=== PATIENT | female | born 1945 | race Caucasian/White ===

== ENCOUNTER → 2019-11-28 13:15 | Outpatient (BNVA) | payer MEDICARE, OTHER, SELFPAY | PROVIDERS: Family Provider Internal Medicine; PCP Internal Medicine; Visit Provider Internal Medicine | DX: E11.9 Type 2 diabetes mellitus without complications (principal); K75.81 Nonalcoholic steatohepatitis (NASH); R41.3 Other amnesia | CPT/HCPCS: 80053; 80061; 82607; 82746; 83036; 83550; 84443; 85025 ==

== ENCOUNTER 2022-05-06 16:46 | Emergency (ER) | payer MEDICARE, OTHER, SELFPAY ==
[2022-05-06 16:49] VITALS: BP 114/71; PULSE 92; RESP 16; TEMP 37; O2SAT 94; BMI 29.8
--- NOTE | 2022-05-06 17:28 | CTR_ITS ---
PROCEDURE INFORMATION: Exam: CT Head Without Contrast Exam date and time: 05/06/2022 6:07 PM Age: 77 years old Clinical indication: Stroke-like symptoms; Altered mental status/memory loss and ataxia; Generalized weakness; Additional info: Stroke like symptoms TECHNIQUE: Imaging protocol: Computed tomography of the head without contrast. Radiation optimization: All CT scans at this facility use at least one of these dose optimization techniques: automated exposure control; mA and/or kV adjustment per patient size (includes targeted exams where dose is matched to clinical indication); or iterative reconstruction. Other technique: STROKE PROTOCOL was implemented. REPORTING DATA: Count of CT and Cardiac NM exams in prior 12 months: This patient has received 0 known CTs and 0 known cardiac nuclear medicine studies in the 12 months prior to the current study. COMPARISON: No relevant prior studies available. RADIATION DOSE METRICS: Total DLP (mGy-cm): 1140.48 FINDINGS: Brain: There is moderate cortical atrophy. Low-density changes in the white matter are consistent with nonspecific small vessel chronic ischemic change. There is no intracranial mass, hemorrhage or edema. Cerebral ventricles: No ventriculomegaly. Paranasal sinuses: Visualized sinuses are unremarkable. No fluid levels. Mastoid air cells: Visualized mastoid air cells are well aerated. Bones/joints: Unremarkable. No acute fracture. Soft tissues: Unremarkable. CT/CT head thrombolytic [id number] IMPRESSION: No acute finding. ASSESSMENT: ASPECTS ([place] Stroke Program Early CT Score) is 10.
--- NOTE | 2022-05-06 18:00 | ED_ITS ---
HPI - Weakness General: Chief complaint: Weakness Stated complaint: nausea vomiting Time Seen by Provider: 05/06/22 18:00 History of Present Illness: 77-year-old female comes in today with what was described as a probable seizure episode. Patient was at the hair salon when she had an event where she threw up and wet herself. The episode was short and patient was confused after it. Patient has no deficits at this time. Patient's family states that she seems to be acting herself except may be a little, druggie. Patient responds appropriate to questions. Patient moves all e xtremities well. Patient does have some right-sided deficits from a prior CVA. Associated symptoms: Reports vomiting; Denies chest pain, fever(s) or nausea Review of Systems Const: Denies: fever(s) ENMT: Denies: throat pain Card: Denies: chest pain Resp: Denies: dyspnea GI: Reports: vomiting; Denies: nausea : Reports: other (Incontinence x1) Skin/Breast: Denies: rash [facility] ED PFSH: Medical History (Updated 05/06/22 @ 21:14 by NITESH Garg) Seizure disorder Family History Mother Diabetes Father Heart disease Social History Smoking and tobacco status: never smoked Alcohol intake: never Adopted: No Marital status: Number of children: 2 service: No Physical Exam Const: COMMON NORMALS: alert HENMT: COMMON NORMALS: normocephalic and atraumatic HEAD & SCALP: normocephalic and atraumatic Eye: GENERAL EYE: appearance normal, both eyes and all related structures Neck/C-Spine: COMMON NORMALS: full ROM CERVICAL SPINE: No Cervical spine tenderness Chest: COMMONS NORMALS: normal palpation of entire chest wall Resp: COMMON NORMALS: normal respiratory effort and clear to auscultation bilaterally AUSCULTATION: clear to auscultation bilaterally Cardio: COMMON NORMALS: regular rate and regular rhythm RATE: regular rate RHYTHM: regular rhythm GI: AUSCULTATION: Yes normoactive bowel sounds Back/Pelvis: THORACIC SPINE/UPPER BACK: No thoracic spinal tenderness LUMBAR SPINE/LOWER BACK: No lumbar spinal tenderness Extremity: NARRATIVE EXTREMITY EXAM: Mild weakness in the right arm and leg. Patient does report that she has 1 bad leg. Neuro: SENSORIUM/ORIENTATION: Yes alert Skin: COMMON NORMALS: turgor normal GENERAL SKIN EXAM: turgor normal Course ED course: 1954, reviewed patient with Dr. Lawler regarding abnormality with urine and white blood cell count. Lactate was added to lab. Reviewed plan at this time to give IV fluids, antibiotic, and reassess for mobility. The patient continues to be really weak with ambulation she may need to have admission to the hospital. 2100, patient was able to ambulate in the hallway with minimal assist. This is much improved over prior ambulation. Patient has been more alert throughout hospital stay. Reviewed with family signs of infection in the urinary tract which we believe lowered her threshold for seizure causing patient to have a seizure. Family reported understanding and agreed with oral antibiotic at home and monitoring for worsening symptoms return as needed. Vital Signs: Vital signs: Vital Signs Temperature 98.6 F 05/06/22 16:49 Pulse Rate 92 05/06/22 16:49 Respiratory Rate 16 05/06/22 16:49 Blood Pressure 114/71 05/06/22 16:49 Pulse Oximetry 94 05/06/22 16:49 Oxygen Delivery Me thod 05/06/22 16:49 MDM - Weakness Medical Decision Making 77-year-old female was brought in today for concerns of an syncopal episode that occurred at a hair salon. At that time patient lost bladder control and threw up. Patient since then has recovered but continues to be slightly withdrawn and somnolent. Patient responds appropriate to questions and is alert and knows where she is at. Patient has a history of CVA, seizure episodes, and dementia. Vital signs are normal. Heart rates regular. Lungs are clear to auscultation. No edema is noted in the extremities. Palpation of the chest wall, cervical, thoracic, and lumbar spine elicits no pain or discomfort. No signs of head injury is noted. Differential diagnosis includes but not limited to CVA, TIA, seizure episode, ACS, sepsis. Urinalysis had a large amount of white blood cells. Blood cell count was leukopenic at 2.2. Lactate was 2.2. Creatinine was 1.2. Anion gap was 20. Patient was given 1 L of IV fluids and 500 mg of Levaquin. Patient was reassessed after IV fluids and was able to ambulate more and was more alert throughout hospital stay visit. Reviewed exam with family with recommendations for treatment of urinary tract infection. It is believed that urinary tract infection caused changes in mental status and reduced threshold for seizure. We will have case management assist patient and family with follow-up with neurology due to patient's seizures. Lab Data 05/06/22 17:03 05/06/22 17:[address] 05/06/22 17:28 IMPRESSION: No acute finding. ASSESSMENT: ASPECTS ([place] Stroke Program Early CT Score) is 10. Laboratory Results WBC 2.2 10^3/uL (4.0-10.0) L 05/06/22 17:03 RBC 4.48 10^6/uL (4.1-5.3) 05/06/22 17: Hgb 13.5 g/dL (11.5-15.3) 05/06/22 17:03 Hct 41.4 % (37.0-47.0) 05/06/22 17:03 MCV 92.4 fl (81-99) 05/06/22 17:03 MCH 30.1 pg (28.0-34.0) 05/06/22 17:03 MCHC 32.6 g/dL (30.0-36.0) 05/06/22 17:03 RDW 13.1 % (12.1-15.1) 05/06/22 17:03 Plt Count 241 10^3/cmm (130-400) 05/06/22 17:03 MPV 10.0 fL (7.4-10.4) 05/06/22 17:03 Neut % (Auto) 92.6 % 05/06/22 17:03 Lymph % (Auto) 5.1 % 05/06/22 17:03 [place] % (Auto) 0.5 % 05/06/22 17: Eos % (Auto) 0.0 % 05/06/22 17: Baso % (Auto) 0.9 % 05/06/22 17:03 Neut # (Auto) 2.00 10^3/uL (1.8-7.7) 05/06/22 17:03 Lymph # (Auto) 0.1 10^3/uL (0.8-4.8) L 05/06/22 17:03 [place] # (Auto) 0.0 10^3/uL (0.2-0.9) L 05/06/22 17:03 Eos # (Auto) 0.0 10^3/uL (0.0-0.8) 05/06/22 17:03 Baso # (Auto) 0.0 10^3/uL (0.0-0.1) 05/06/22 17:03 Nucleated RBC % (auto) 0 % 05/06/22 17:03 Nucleated RBCs # 0.0 /100WBC 05/06/22 17:03 Sodium 137 mmol/L (136-145) 05/06/22 17:03 Potassium 4.1 mmol/L (3.5-5.1) 05/06/22 17:03 Chloride 101 mmol/L (98-107) 05/06/22 17:03 Carbon Dioxide 18 mmol/L (22-29) L 05/06/22 17:03 Anion Gap 22.1 (5-19) H 05/06/22 17:03 BUN 25 mg/dL (8-23) H 05/06/22 17:03 Creatinine 1.2 mg/dL (0.5-0.9) H 05/06/22 17:03 GFR Calculation Not Reportable 05/06/22 17:03 Glucose 112 mg/dL (65-115) 05/06/22 17:03 Calculated Osmolality 289 mOsm/kg (285-295) 05/06/22 17:03 Lactic Acid 2.1 mmol/L (0.5-2.2) 05/06/22 20:30 Calcium 10.2 mg/dL (8.5-10.5) 05/06/22 17:03 Total Bilirubin 0.7 mg/dL (0.15-1.2) 05/06/22 17:03 AST 33 U/L (0-32) H 05/06/22 17:03 ALT 16 U/L (0-33) 05/06/22 17:03 Alkaline Phosphatase 91 U/L (35-105) 05/06/22 17:03 Troponin T Baseline 21 ng/L (0-10) H 05/06/22 17:03 Troponin T 120 Minute 24.94 ng/L (0-10) H 05/06/22 19:43 Delta Troponin T 3.94 ABS# (0-10) 05/06/22 19:43 Total Protein 7.0 g/dL (6.6-8.7) 05/06/22 17:03 Albumin 3.9 g/dL (3.5-5.2) 05/06/22 17:03 Globulin 3.1 g/dL (1.3-4.6) 05/06/22 17:03 Urine Color Yellow (Yellow) 05/06/22 18:48 Urine Appearance Cloudy (CLEAR) A 05/06/22 18:48 Urine pH 9 (5-7) H 05/06/22 18:48 Ur Specific [place] 1.015 (1.005-1.030) 05/06/22 18:48 Urine Protein Neg (Negative) 05/06/22 18:48 Urine Glucose (UA) Norm (Normal) 05/06/22 18:48 Urine Ketones 1+ (Negative) H 05/06/22 18:48 Urine Blood 3+ (Negative) H 05/06/22 18:48 Urine Nitrate Positive (Negative) H 05/06/22 18:48 Urine Bilirubin Neg (Negative) 05/06/22 18:48 Prot Sulfosalicylic Acd Negative (Negative) 05/06/22 18:48 Urine Urobilinogen Norm mg/dL (Negative) 05/06/22 18:48 Ur Leukocyte Esterase 2+ (Negative) H 05/06/22 18:48 Urine RBC >100 /hpf (0-2) H 05/06/22 18:48 Urine WBC >100 /hpf (0-5) H 05/06/22 18:48 Ur Squamous Epith Cells 0-4 /hpf (0-5) H 05/06/22 18:48 Triple Phos Crystals 5-10 /hpf H 05/06/22 18:48 Amorphous Sediment 3+ /hpf 05/06/22 18:48 Urine Bacteria 3+ /hpf (NONE) H 05/06/22 18:48 Discharge Plan Discharge Patient Disposition: Home Clinical Impression: Acute UTI, Seizure, Dehydration Condition: Stable Prescriptions: New levofloxacin 500 mg tablet 500 mg PO DAILY 5 Days Qty: 5 0RF No Action Centrum Silver Women 8 mg iron-400 mcg-300 mcg tablet 1 tab PO DAILY nabumetone 750 mg tablet 750 mg PO BID Qty: 60 1RF primidone 50 mg tablet See Rx Instructions .ROUTE .COMPLEX Qty: 180 2RF Dose Instruction: TAKE ONE TABLET BY MOUTH ONCE DAILY IN THE MORNING AND TWO TABLETS BY MOUTH IN THE EVENING. MAY TAKE AN EXTRA TABLET IF NEEDED Rx Instructions: TAKE ONE TABLET BY MOUTH ONCE DAILY IN THE MORNING AND TWO TABLETS BY MOUTH I N THE EVENING. MAY TAKE AN EXTRA TABLET IF NEEDED topiramate [Topamax] 200 mg tablet 200 mg PO BID Qty: 60 3RF Discharge Orders: Discharge ED (Routine); Ordered 05/06/22 Ordered By: Michael Palacios Referrals: Bola Cervantes MD [Primary Care Provider] - Discharge Diet: Usual diet Discharge Activity: Increase activity as tolerated Patient Instructions: Urinary Tract Infection in Women (ED) Activity Restrictions/Additional Instructions: Continue antibiotic as directed encourage plenty of fluids. Continue with routine medications as directed. Follow-up with primary care in 3 to 5 days. Return to ER for worsening symptoms such as fever greater than 100.4, inability to hold fluids down, worsening changes in mental status, or increasing seizures. Coding Level of Care Code ED Lip And Gate Builder for [place] NIH stroke score NIHSS Level Of Consciousness - 1a: 0 Level Of Consciousness Questions - 1b: One Correct Level Of Consciousness Commands - 1c: Both Correct Best Gaze - 2: Normal Visual Pate - 3: No Visual Loss Facial Palsy - 4: Normal Motor Arm Right - 5: Effort Against [place] Motor Arm Left - 5: No Drift Motor Leg Right - 6: No Drift Motor Leg Left - 6: No Drift Limb Ataxia - 7: Absent Sensory - 8: Normal Best Language - 9: Mild/Moderate Aphasia Dysarthia - 10: Normal Extinction And Inattention - 11: 0 Score Total Score: 4
[2022-05-06 18:22] LABS: Basophils % 0.9 %; Hematocrit 41.4 % (37.0-47.0); Hemoglobin 13.5 g/dL (11.5-15.3); Lymphocytes # 0.1 10^3/uL (0.8-4.8); Lymphocytes % 5.1 %; Mean Corpuscular HGB Conc 32.6 g/dL (30.0-36.0); Mean Corpuscular Hemoglobin 30.1 pg (28.0-34.0); Mean Corpuscular Volume 92.4 fl (81-99); Monocytes % 0.5 %; Neutrophils % 92.6 %; Nucleated Red Blood Cells % 0 %; Platelet Count 241 10^3/cmm (130-400); Red Blood Count 4.48 10^6/uL (4.1-5.3); Red Cell Distribution Width 13.1 % (12.1-15.1); White Blood Count 2.2 10^3/uL (4.0-10.0)
[2022-05-06 18:48] LABS: Albumin Level 3.9 g/dL (3.5-5.2); Chloride 101 mmol/L (98-107); Total Bilirubin 0.7 mg/dL (0.15-1.2)
[2022-05-06 18:51] LABS: Slide Review Slide Review Perform
[2022-05-06 19:09] LABS: Alanine Aminotransferase 16 U/L (0-33); Alkaline Phosphatase 91 U/L (35-105); Anion Gap 22.1 (5-19); Aspartate Amino Transferase 33 U/L (0-32); Blood Urea Nitrogen 25 mg/dL (8-23); Calcium 10.2 mg/dL (8.5-10.5); Carbon Dioxide 18 mmol/L (22-29); Globulin 3.1 g/dL (1.3-4.6); Glucose 112 mg/dL (65-115); Osmolality Calculated 289 mOsm/kg (285-295); Potassium 4.1 mmol/L (3.5-5.1); Sodium 137 mmol/L (136-145)
[2022-05-06 19:13] LABS: Troponin(5th) Baseline 21 ng/L (0-10)
[2022-05-06 19:29] LABS: Specific Gravity, Urine 1.015 (1.005-1.030); Urine Appearance Cloudy (CLEAR); Urine Color Yellow (Yellow); pH Urine 9 (5-7)
[2022-05-06 19:33] LABS: Add Urine Culture? Yes; Add Urine Microscopic? YES; Amorphous Sediment Urine 3+ /hpf; Bacteria Urine 3+ /hpf; Bilirubin Urine Neg (Negative); Blood Urine 3+ (Negative); Glucose Urine UA Norm (Normal); Ketones Urine 1+ (Negative); Leukocyte Esterase Urine 2+ (Negative); Nitrate Urine Positive (Negative); Protein Urine Neg (Negative); RBC Urine >100 /hpf (0-2); Squamous Epithelial Cell Urine 0-4 /hpf (0-5); Sulfosalicylic Acid Urine Negative (Negative); Urobilinogen Urine Norm (Negative); WBC Urine >100 /hpf (0-5)
[2022-05-06] MEDS: levoFLOXacin 500 mg Tablet PO (19:52)
[2022-05-06] MEDS: sodium chloride 0.9% 1,000 ML 999 ML IV (19:54)
[2022-05-06 20:07] LABS: Troponin 5 2HR 24.94 ng/L (0-10)
[2022-05-06 20:09] LABS: Troponin 5 2HR Delta 3.94 ABS# (0-10)
[2022-05-06 21:04] LABS: Lactic Sepsis W/Reflex 2.1 mmol/L (0.5-2.2)
[2022-05-06 22:25] LABS: Reflex Lactate Order REFLEX LACTIC ORDERD
--- NOTE | 2022-05-07 13:38 | DCPLANNER ---
Addendum entered by Emma Acuna 09/11/22 10:57: Appointment with neurology - cancelled Addendum entered by Emma Acuna 05/14/22 07:37: Patient has a follow up appointment scheduled with neurology for Wednesday, May 26, 2022 at 10:[address] Briscoe. Clinic will call patient with appointment information. Original Note: manager combination had message to schedule a follow up appointment for patient with neurology. manager combination sent patients information to the front office staff at neurology. Patients information will be printed and reviewed. Clinic will call patient with appointment information.
== END 2022-05-06 21:21 | disposition home or self-care (01) ==
PROVIDERS: Emergency Provider Nurse Practitioner Family; PCP Internal Medicine
DX: R56.9 Unspecified convulsions (principal); N39.0 Urinary tract infection, site not specified; E86.0 Dehydration
CPT/HCPCS: 36415; 70450; 80053; 81001; 83605; 84484; 85025; 87040; 87086; 96360; 99285; J7030

== ENCOUNTER 2023-03-23 16:35 | Inpatient (IN) | payer MEDICARE, OTHER, MEDICAID, SELFPAY ==
[2023-03-23] VITALS (35 sets, daily range): BP systolic 101–142; BP diastolic 54–98; PULSE 69–93; RESP 15–25; TEMP 36.4–36.7; O2SAT 95–100; BMI 29.7
--- NOTE | 2023-03-23 16:41 | ECG_ITS ---
[facility] Test Date: 2023-03-23 Pat Name: Destiny Hernandez Department: Room: Gender: Female Manager Advertising: : 1945 Requested By: Viridiana Lawler Order Number: [id number] Ag MD: Fady Thompson M.D. Measurements Intervals [place] Rate: 74 P: 71 SC: 221 QRS: 58 QRSD: 110 T: 91 QT: 350 QTc: 388 Interpretive Statements SINUS RHYTHM WITH FIRST DEGREE AV BLOCK LOW QRS VOLTAGE IN PRECORDIAL LEADS [QRS DEFLECTION < 1.0 mV IN CHEST LEADS] POSSIBLE ANTERIOR MYOCARDIAL INFARCTION , OF INDETERMINATE AGE [30 ms Q WAVE IN V3/V4, OR R < 0.2 mV IN V4] MARKED ST ELEVATION, CONSIDER INFERIOR INJURY [MARKED ST ELEVATION W/O NORMALLY INFLECTED T-WAVE IN II/aVF] ACUTE [place] No previous ECG available for comparison Electronically Signed On 03-23-2023 19:38:43 FOOD TECHNICIAN by Fady Thompson M.D. [email or web address]
--- NOTE | 2023-03-23 16:41 | XRR_ITS ---
PROCEDURE INFORMATION: Exam: XR Chest Exam date and time: 03/23/2023 5:06 PM Age: 77 years old Clinical indication: Other: Stemi; Additional info: Cp stemi TECHNIQUE: Imaging protocol: Radiologic exam of the chest. Views: 1 view. COMPARISON: No relevant prior studies available. FINDINGS: Lungs: Mild pulmonary vascular congestion. Blunting of the left costophrenic angle suggestive of small effusion , pleuroparenchymal thickening or atelectatic opacity. Mild strand-like atelectasis in the left lung base. No other focal airspace opacity. Pleural spaces: See Lungs finding. Heart/Mediastinum: The cardiac silhouette is magnified by portable technique, likely borderline in size. Bones/joints: Unremarkable. Organs: A branching density measuring up to 3.5 cm in diameter in the left upper quadrant could represent a large renal stone, external object or material in the bowel, not further assessed. XR/XR chest 1V portable [id number] IMPRESSION: 1. Borderline cardiac silhouette size with mild pulmonary vascular congestion but without overt interstitial edema. 2. Mild left basilar atelectasis. A small left pleural effusion may be present. 3. A 3.5 cm left upper quadrant density may represent a caliceal renal stone, nonemergent sonographic evaluation recommended.
[2023-03-23] MEDS: clopidogrel 300 mg Tablet 600 MG PO (17:01)
--- NOTE | 2023-03-23 17:01 | W.ED.CHESTPA ---
HPI - Chest Pain General: Chief Complaint: Chest Pain Stated Complaint: chest pain Time Seen by Provider: 03/23/23 16:53 Source: patient Mode of arrival: ambulatory Limitations: no limitations History of Present Illness: 77-year-old femal states that today she is having pressure type pain in her chest going to her right arm states she is just feeling strange. She cannot give an exact time states the pain currently is a 3 out of 10. Denies any vomiting or diarrhea. Associated symptoms: Deny abdominal pain, dyspnea, fever(s), nausea or vomiting Review of Systems Const: Denies: fever(s), chills, body aches or change in appetite ENMT: Denies: throat pain or dental pain Card: Reports: chest pain Resp: Denies: dyspnea GI: Denies: abdominal pain, nausea, vomiting or diarrhea Musc: Denies: neck pain or back pain Skin/Breast: Denies: rash Neuro: Denies: headache(s) PFS ED PFSH: Medical History (Updated 03/23/23 @ 17:31 by Viridiana Lawler MD) Seizure disorder Family History Mother Diabetes Father Heart disease Social History Smoking and tobacco/nicotine status: never used tobacco/nicotine Alcohol intake: never Substance/Drug Use: never Adopted: No Marital status: Number of children: 2 service: No Physical Exam Const: COMMON NORMALS: patient oriented x3 GENERAL APPEARANCE: ill appearing HENMT: COMMON NORMALS: normocephalic and atraumatic HEAD & SCALP: normocephalic and atraumatic Eye: COMMON NORMALS: Equal, round and reactive pupils present and EOMs intact bilaterally PUPIL: Yes Equal, round and reactive pupils present Neck/C-Spine: COMMON NORMALS: full ROM and supple Chest: COMMONS NORMALS: normal inspection of the chest and normal palpation of entire chest wall Resp: COMMON NORMALS: normal respiratory effort, No retractions, No use of accessory muscles and clear to auscultation bilaterally AUSCULTATION: clear to auscultation bilaterally Cardio: COMMON NORMALS: regular rate, regular rhythm and No murmurs present (Cardio) RATE: regular rate RHYTHM: regular rhythm GI: COMMON NORMALS: Normal to inspection, nondistended, normoactive bowel sounds present, Soft to palpation, non-tender and no masses PALPATION: Yes Soft to palpation Extremity: COMMON NORMALS: normal to inspection and full ROM Neuro: COMMON NORMALS: patient oriented x3, moves all extremities and no focal motor deficits Psych: COMMON NORMALS: mental status grossly normal, Normal thought process present and cooperative THOUGHT PROCESS: Normal thought process present Skin: COMMON NORMALS: no rashes or lesions noted and no wounds GENERAL SKIN EXAM: no rashes or lesions noted Course Vital Signs: Vital signs: Vital Signs Temperature 98.0 F 03/23/23 16:43 Pulse Rate 81 03/23/23 17:26 Respiratory Rate 16 03/23/23 16:43 Blood Pressure 116/82 03/23/23 17:26 Pulse Oximetry 98 03/23/23 17:26 Oxygen Delivery Pa thod Room Air 03/23/23 17:26 MDM - Chest Pain Medical Decision Making Patient presents here with an STD elevation RI EKG was done at 1641 had the EKG handed to me at 1654 and called a STEMI at that time. Patient is taken to Burner Technician by Dr. Martin Medical Records I reviewed the patient's medical records. Lab Data I reviewed the patient's lab results. 03/23/23 17:05 03/23/23 16:57 Radiology Impressions Chest X-Ray 03/23/23 16:41 IMPRESSION: 1. Borderline cardiac silhouette size with mild pulmonary vascular congestion but without overt interstitial edema. 2. Mild left basilar atelectasis. A small left pleural effusion may be present. 3. A 3.5 cm left upper quadrant density may represent a caliceal renal stone, nonemergent sonographic evaluation recommended. Laboratory Results WBC 7.97 10^3/uL (3.29-11.43) 03/23/23 17:05 RBC 4.68 10^6/uL (3.85-5.65) 03/23/23 17:05 Hgb 14.10 g/dL (11.27-16.99) 03/23/23 17:05 Hct 43.8 % (36-47) 03/23/23 17:05 MCV 93.6 fl (85-98) 03/23/23 17:05 MCH 30.1 pg (27-33) 03/23/23 17:05 MCHC 32.2 g/dL (30-55) 03/23/23 17:05 RDW 12.8 % (12.1-15.1) 03/23/23 17:05 Plt Count 311 10^3/cmm (157-399) 03/23/23 17:05 MPV 8.6 fL (7.4-10.4) 03/23/23 17:05 Neut % (Auto) 82.8 % 03/23/23 17:05 Lymph % (Auto) 9.5 % 03/23/23 17:05 [place] % (Auto) 4.9 % 03/23/23 17:05 Eos % (Auto) 1.0 % 03/23/23 17:05 Baso % (Auto) 1.4 % 03/23/23 17:05 Neut # (Auto) 6.60 10^3/uL (1.8-7.7) 03/23/23 17:05 Lymph # (Auto) 0.8 10^3/uL (0.8-4.8) 03/23/23 17:05 [place] # (Auto) 0.4 10^3/uL (0.2-0.9) 03/23/23 17:05 Eos # (Auto) 0.1 10^3/uL (0.0-0.8) 03/23/23 17:05 Baso # (Auto) 0.1 10^3/uL (0.0-0.1) 03/23/23 17:05 Nucleated RBC % (auto) 0 % 03/23/23 17:05 Nucleated RBCs # 0.0 /100WBC 03/23/23 17:05 PT 14.30 SECONDS (12.1-14.9) 03/23/23 16:57 INR 1.07 (0.8-1.2) 03/23/23 16:57 XR interpretation done by ED provider, pending radiology final review EKG Data EKG 1: I personally reviewed and interpreted this EKG as follows: EKG interpretation date: 03/23/23 EKG interpretation time: 16:41 Interpretation: nsr hr 74 Discharge Plan Discharge Patient Disposition: Admitted As Inpatient Clinical Impression: ST elevation myocardial infarction (STEMI) Condition: Stable Coding Level of Care Code ED Oracle Programmer for Chg [place]
[2023-03-23] MEDS: aspirin 325 mg Tablet PO (17:02)
[2023-03-23] MEDS: heparin 5,000 unit/mL INJ 1 mL 4000 UNIT IVP (17:03)
--- NOTE | 2023-03-23 17:06 | XACV_ITS ---
Exam Room: 2 Ht: 168 cm Wt: 83 kg BSA: 2.00 m2 Gender: Female : 1945 Any Known Allergies: Other Exam Priority: Routine Indication(s): - Acute inferior OK Procedure(s): Procedure Description: Diagnostic procedure Procedure Description: PCI procedure Procedure Description: Left Heart Catheterization Procedure Description: Drug Eluting Coronary Stent Procedure Description: Coronary Angiography Diagnostic Cath Status: Emergency Diagnostic Findings * Arrived at the emergency room with ST segment elevation in leads II, III and aVF. Some delay in getting to the Drilling Machine Runner due to the patient's dementia. Procedure performed from the right radial artery. The right coronary artery is occluded in the midportion with thrombus backed up to just beyond the ostium. The left main, circumflex and LAD are completely normal. PCI Status: Emergency PCI LVEF Assessed: No PCI Indication: Immediate PCI for STEMI Interventional Findings * A wire was placed down the vessel with some difficulty. The occlusion was actually in the mid vessel with thrombus propagating retrograde to just beyond the ostium of the vessel. The mid vessel was primarily stented. As soon as the stent was deployed the patient had no reflow. There was no flow whatsoever. Her blood pressure was marginal running in the 60s to 70s. I gave her Significant amounts of normal saline. She received 0.5 mg of atropine for bradycardia down in the 30s. This reestablished the better heart rate. Initially I gave her 200 mcg of nitroglycerin intracoronary. This reestablished very minimal flow. I then gave her an Aggrastat bolus down the vessel with an intravenous Aggrastat drip. Finally I gave her 200 mcg of nicardipine carefully. This reestablished flow finally. At the end of the intervention there was AMIRAH-3 flow. Decision for PCI with Surgical Consult: No PCI for Multi-vessel Disease: No Conclusions 1. Acute inferior wall myocardial infarction with occluded right coronary artery. No reflow after stenting. Reestablished flow with intracoronary nitroglycerin, Aggrastat and nicardipine. Left coronary system normal. Recommendations * Medical treatment. Diagnostic RX Recommendation: PCI w/o planned CABG Anticoagulation: Heparin, Tirofiban Pressures Phase:Rest AO : 74 / 47 ( 59 ) @ 12:34:05 PM 85 / 42 ( 58 ) @ 12:34:05 PM 88 / 36 ( 55 ) @ 12:34:05 PM 87 / 37 ( 55 ) @ 12:34:05 PM 125 / 64 ( 86 ) @ 5:47:00 PM 47 / 21 ( 34 ) @ 5:50:00 PM 54 / 25 ( 36 ) @ 5:51:00 PM 78 / 51 ( 64 ) @ 5:54:00 PM LV : 99 / -16 / -3 @ 12:34:05 PM 101 / -16 / -3 @ 12:34:05 PM Valves Phase:DefaultPhase AV : 14.0 @ 6:34:05 PM 14.0 @ 6:34:05 PM AV Mean Gradient: 11.0 @ 6:34:05 PM Clinical Evaluation EBL: 5mL-10mL Procedural Details Procedure Consent Obtained. Current Diagnosis : STEMI. Pre-Procedure Time Out. Identified patient by full name and date of as verbalized by the patient/guarantor. Does the consent match the physician's order: N/A Emergent; Informed Consent not obtained due to time critical life threat. Accurate & Complete Informed Consent: N/A Emergent; Informed Consent not obtained due to time critical life threat. Inpatient/Outpatient History & Physical on Chart: N/A Emergent; Informed Consent not obtained due to time critical life threat. If H&P is completed, is and addenduem needed: N/A Emergent; Informed Consent not obtained due to time critical life threat; If yes, is the addendum complete: N/A Emergent; Informed Consent not obtained due to time critical life threat. Visualize and Verify Site with Patient/Guarantor: N/A. Relevant Radiology Images available: N/A Emergent; Informed Consent not obtained due to time critical life threat. The risks, benefits, and alternatives of sedation and/or procedure were discussed by physician. The patient agrees to continue. Procedure started. [facility] Clinical Fraility Score: 4: Vulnerable. Drilling Machine Runner Indications: ACS <= 24 hours. Chest Pain Symptom Assessment: Typical Angina Symptoms. Cardiovascular Instability: Yes, if yes, Persistant Ischemic Symptoms. Correct patient, site and procedure confirmed by cath team. Current diagnosis: STEMI. PERRLA. Strong, equal hand liner checker bilaterally. Lungs clear x 5 lobes. IV Site on Arrival: 18 gauge in the right anticubital. IV Fluids: 0.9% NaCl at KVO. 0 mL infused prior to supervisor laboratory. Pre Procedural Pulses: bilateral radial was 2+. Oxygen started at 2liters/min via nasal canula. right groin was prepped with chloroprep then draped in the usual sterile fashion. right radial was prepped with chloroprep then draped in the usual sterile fashion. Physician notified. Baseline sample Acquired. HR: 80 BPM. Patient's family in the supervisor laboratory waiting room. Dr. Martin will update at the completion of the procedure. Equipment: 6F - Radial. Cardiac Cath Pack. ACIST Manifold Kit Model BT 2000. Heparinized Saline (2 units/mL), 1000 mL bag. Physician arrived. Physician scrubbed in. Immediate Pre-Procedure Time Out. Correct Patient: N/A Emergent; Informed Consent not obtained due to time critical life threat; Correct Procedure: N/A Emergent; Informed Consent not obtained due to time critical life threat; Correct Site: N/A Emergent; Informed Consent not obtained due to time critical life threat; Correct Patient Position: N/A Emergent; Informed Consent not obtained due to time critical life threat; Correct Supplies: N/A Emergent; Informed Consent not obtained due to time critical life threat; Dried Flammable Prep: N/A Emergent; Informed Consent not obtained due to time critical life threat; Blood Products Available: N/A Emergent; Informed Consent not obtained due to time critical life threat;. Lidocaine 1% infiltrated to the right radial. Arterial access obtained. Unable to thread wire. Needle and wire out. Dr. Martin holding manual pressure. Arterial access obtained. 6 kyrgyz JR 4 guide catheter was inserted over the exchange J wire. [place] guidewire was advanced through the guide catheter to lesion in the mid RCA. Inflation Number : 1 Catarino Roman ZAYRA 3.5X15 CANDICE -Lot Number# [id number] was prepped and advanced across the Mid RCA. The stent was deployed at 15 BETSEY for 0:31 seconds. Lot [id number]. Stent balloon out over wire. Results checked. Results checked. Wire out. Guide catheter out over the exchange J wire. A 5 kyrgyz TIG catheter in over the exchange J wire. EDP Sample taken: LV 99/-17,-4; HR: 78 BPM; SpO2: 100%. Pullback taken: LV 101/-17,-4; AO 88/36(55); Mean: 11mmHg, Peak to Peak: 14mmHg, SEP: 17sec/min; HR: 78 BPM; SpO2: 100%. PCI Indication : Immediate PCI for STEMI. System delay: EKG was at 1641. ER doc was not notified until 1653. Catheter removed over the exchange J wire. Dr Martin scrubbed out. A TR Band was successful obtaining hemostatsis at the Right Radial artery insertion site. Post Procedure: Pulses reassessed and unchanged. PERRLA. Strong, equal hand liner checker bilaterally. No VTE prophylaxis required. Medication's Wasted: Lidocaine 1% = 16 mL. Medication's Wasted: Nitro = 49.6 mg. Medication's Wasted: Heparin = 1000 Units. Medication's Wasted: Other = Versed 1 mg. Medication's Wasted: Other = Fentanyl 50 mcg. Medication's Wasted: Other = Atropine 0.5mg. Total IV fluids: 66 mL. PCI Indication: STEMI - Stable (<= 12 hrs from symptom onset). Post-op diagnosis: Acute inferior OK with CANDICE stent to the mid RCA. Complications: none. Estimated blood loss: 5mL-10mL. Responsiveness - Normal response to verbal stimuli; alert and oriented, PERRLA. Airway - Unaffected, no intervention required; spontaneous ventilation. Circulation: W/N/L, pulses unchanged. Nausea/Vomiting: No. Procedure completed. Patient transferred by bed to ICU. Vital chart was stopped. Access Site Site: Right Radial artery Sheath Size: 6 Fr Hemostasis Method: TR Band Hemostasis Success: Successful Procedure Medications Start: 5:40 PM Stop: 5:40 PM Medication: Versed Amount: 1 mg Route: I.V. Start: 5:40 PM Stop: 5:40 PM Medication: Fentanyl Amount: 50 mcg Route: I.V. Start: 5:52 PM Stop: 5:52 PM Medication: Atropine Amount: 0.5 mg Route: I.V. Start: 5:55 PM Stop: 5:55 PM Medication: Nitrogylcerin Amount: 200 mcg Route: I.C. Start: 5:45 PM Stop: 5:45 PM Medication: Nitrogylcerin Amount: 200 mcg Route: I.A. Start: 6:02 PM Stop: 6:02 PM Medication: Aggrastat 12.5 mg/250 mL Amount: 42 ml Route: I.C. Start: 6:02 PM Stop: 6:02 PM Medication: Aggrastat 12.5 mg/250 mL Amount: 15.1 ml/hr Route: I.C. Start: 6:08 PM Stop: 6:08 PM Medication: Cardene Amount: 100 mcg Route: I.C. Start: 6:09 PM Stop: 6:09 PM Medication: Cardene Amount: 100 mcg Route: I.C. I, the attending physician, have reviewed and verified all procedure medications. Yes, all medications given per verbal order Report Signatures Finalized by Dr. Casey Martin MD on 03/23/2023 06:39 PM
[2023-03-23 17:10] LABS: Basophils # 0.1 10^3/uL (0.0-0.1); Basophils % 1.4 %; Eosinophils # 0.1 10^3/uL (0.0-0.8); Hematocrit 43.8 % (36-47); Lymphocytes # 0.8 10^3/uL (0.8-4.8); Lymphocytes % 9.5 %; Mean Corpuscular HGB Conc 32.2 g/dL (30-55); Mean Corpuscular Hemoglobin 30.1 pg (27-33); Mean Corpuscular Volume 93.6 fl (85-98); Mean Platelet Volume 8.6 fL (7.4-10.4); Monocytes # 0.4 10^3/uL (0.2-0.9); Monocytes % 4.9 %; Neutrophils % 82.8 %; Nucleated Red Blood Cells % 0 %; Platelet Count 311 10^3/cmm (157-399); Red Blood Count 4.68 10^6/uL (3.85-5.65); Red Cell Distribution Width 12.8 % (12.1-15.1); White Blood Count 7.97 10^3/uL (3.29-11.43)
--- NOTE | 2023-03-23 17:30 | P.HP_ITS ---
Providers/Chief Complaint 2 Admitting Physician: Mario Primary Care Provider: Bola Cervantes MD Chief Complaint: chest pain History of Present Illness Destiny Hernandez is a 77 year old female with no prior history of heart disease. She is forgetful. She came to the emergency room earlier today with chest pain apparently. When I talked to her she did not remember what time the chest pain started. When I saw her she was no longer having chest pain however EKG revealed ST elevation in the inferior leads with reciprocal changes in leads V1, V2, 1 and L. She has received heparin, Plavix and aspirin. Review of Systems 2 Narrative: Unavailable Medications/Allergies Home Medications Medication Instructions Recorded Confirmed Last Taken Type ozectghj-zsol-goen 8 mg-folic 400 1 tab PO DAILY 11/28/19 05/02/20 Unknown History mcg-K 50 mcg-lutein 300 mcg tablet (Centrum Silver Women) nabumetone 750 mg tablet 750 mg PO BID #60 tabs 01/14/22 Unknown Rx primidone 50 mg tablet See Rx Instructions .Route 01/14/22 Unknown Rx .COMPLEX #180 tabs topiramate 200 mg tablet (Topamax) 200 mg PO BID #60 tabs 01/14/22 Unknown Rx Allergies Allergy/AdvReac Type Severity Reaction Status Date / Time ampicillin Allergy Unknown Verified 03/23/23 16:43 Penicillins Allergy Unknown Verified 03/23/23 16:43 PFSH Acute 2 PFSH: Medical History (Updated 03/23/23 @ 17:31 by Viridiana Lawler MD) Seizure disorder Family History Mother Diabetes Father Heart disease Social History Smoking and tobacco/nicotine status: never used tobacco/nicotine Alcohol intake: never Substance/Drug Use: never Adopted: No Marital status: Number of children: 2 service: No Vitals/I&O/Wt Last Vital Signs Temp 98.0 F 03/23/23 16:43 Pulse 81 03/23/23 17:26 Resp 16 03/23/23 16:43 BP 116/82 03/23/23 17:26 Pulse Ox 98 03/23/23 17:26 O2 Del Method Room Air 03/23/23 17:26 Weight last 48 hrs Weight 184 lb Physical Exam 2 Narrative: GENERAL: She states she feels well without pain HEENT: Exam within normal limits. NECK: Supple without jugular vein distention. The carotid upstroke is normal without bruits. BACK: Exam normal. LUNGS: Clear. HEART: Regular rate and rhythm. ABDOMEN: Benign without organomegaly or tenderness. EXTREMITIES: No edema. NEUROLOGIC: Exam normal. SKIN: Unremarkable. Data 03/23/23 17:05 03/23/23 16:57 A&P Assessment and plan (1) ST elevation myocardial infarction (STEMI): (2) Memory loss: (3) Seizure disorder: Plan To cardiac catheterization now. Attestations 2 Medical Necessity Statement*: Admission for management of an acute inferior wall [place] and Moderate Time for a total of 45 minutes, includes reviewing past or interval history, examining/interviewing patient, placing orders, counseling patient/family/other support, updating patient/family/other support, discussing plan of care with staff, communicating with other healthcare providers, documenting encounter and coordinating care Diagnoses ST elevation myocardial infarction (STEMI) I21.3 Memory loss R41.3 Seizure disorder G40.905
[2023-03-23 17:31] LABS: INR 1.07 (0.8-1.2)
[2023-03-23 17:56] LABS: Alanine Aminotransferase 11 U/L (0-33); Albumin Level 3.9 g/dL (3.5-5.2); Alkaline Phosphatase 88 U/L (35-105); Aspartate Amino Transferase 17 U/L (0-32); Blood Urea Nitrogen 27 mg/dL (8-23); Calcium 10.1 mg/dL (8.5-10.5); Carbon Dioxide 23 mmol/L (22-29); Chloride 106 mmol/L (98-107); Globulin 2.7 g/dL (1.3-4.6); Glucose 102 mg/dL (65-115); Lipase 102 U/L (13-60); Osmolality Calculated 299 mOsm/kg (285-295); Sodium 142 mmol/L (136-145); Total Bilirubin 0.2 mg/dL (0.15-1.2); Total Protein 6.6 g/dL (6.6-8.7)
[2023-03-23 17:59] LABS: Troponin(5th) Baseline 34 ng/L (0-10)
[2023-03-23] MEDS: sodium chloride 0.9% 1,000 ML 135 ML IV (18:38)
[2023-03-23] MEDS: atorvastatin 40 mg Tablet PO (20:58)
[2023-03-23 21:01] LABS: Troponin 5 2HR 1048 ng/L (0-10); Troponin 5 2HR Delta 1014 ABS# (0-10)
[2023-03-23 23:08] LABS: Troponin 5 6HR 2508 ng/L (0-10)
[2023-03-23 23:09] LABS: Troponin 5 6HR Delta 2474 ng/L (0-12)
[2023-03-24] VITALS (51 sets, daily range): BP systolic 87–130; BP diastolic 47–93; PULSE 59–82; RESP 14–25; TEMP 36.4–36.9; O2SAT 86–100; BMI 29.7
[2023-03-24] MEDS: sodium chloride 0.9% 1,000 ML 135 ML IV ×2 (04:48→13:10)
--- NOTE | 2023-03-24 07:41 | P.PN_ITS ---
Subjective 2 Subjective: Destiny had an uneventful night. She came in last evening with an acute inferior wall myocardial infarction. Her right coronary artery was occluded. Upon stenting she had a significant thrombus burden which traveled distally and caused no reflow. She then became hypotensive and had transient third-degree heart block requiring atropine. I was unable to use a significant dose of a calcium akila because of the hypotension. I used low-dose intracoronary nitroglycerin followed by Aggrastat. Eventually, we were able to reestablish flow in the artery. Her ST segments were quite high during the procedure but this morning they are back down to normal. She has no complaints. There were no complications. Vitals/I&O/Wt Last Vital Signs Temp 98.1 F 03/24/23 01:15 Pulse 64 03/24/23 06:00 Resp 20 H 03/24/23 05:30 BP 104/78 03/24/23 05:30 Pulse Ox 94 03/24/23 05:30 O2 Del Method Room Air 03/24/23 05:30 03/23/23 03/24/23 03/24/23 22:59 06:59 14:59 Intake Total 1000 / 1000 Balance 1000 / 1000 Weight last 48 hrs Weight 184 lb Weight 184 lb Weight 184 lb Physical Exam 2 Narrative: GENERAL: In general she is comfortable this morning without chest pain. HEENT: Exam within normal limits. NECK: Supple without jugular vein distention. The carotid upstroke is normal without bruits. BACK: Exam normal. LUNGS: Clear. HEART: Regular rate and rhythm. ABDOMEN: Benign without organomegaly or tenderness. EXTREMITIES: No edema. The right radial artery entry site is flat, dry without bleeding or hematoma. There is a pulse but diminished. NEUROLOGIC: Exam normal. SKIN: Unremarkable. Data 03/23/23 17:05 03/23/23 16:57 A&P Assessment and plan (1) ST elevation myocardial infarction (STEMI): (2) Memory loss: (3) Seizure disorder: Plan She is doing well post stenting of the right coronary artery. We will get her up and around today. If all goes well she may be discharged tomorrow. I was unable to add a beta-akila last night because of the hypotension and bradycardia. I will try a short acting beta-akila today. Attestations 2 Medical Necessity Statement*: Hospitalization for management of an acute inferior wall myocardial infarction and Moderate Time for a total of 35 minutes, includes reviewing past or interval history, examining/interviewing patient, placing orders, counseling patient/family/other support, updating patient/family/other support, discussing plan of care with staff, communicating with other healthcare providers, documenting encounter and coordinating care Diagnoses ST elevation myocardial infarction (STEMI) I21.3 Memory loss R41.3 Seizure disorder G40.901
--- NOTE | 2023-03-24 07:46 | PC.PHAR ---
PT STATES NO LONGER TAKES LEVOTHYROXINE 25MCG LAST FILLED 08/28/22 90DS. TDAP GIVEN 08/04/22
[2023-03-24] MEDS: aspirin 81 mg EC Tablet PO (08:25)
[2023-03-24] MEDS: clopidogrel 75 mg Tablet PO (08:25)
[2023-03-24] MEDS: memantine 5 mg tablet 20 MG PO (12:42)
[2023-03-24] MEDS: levothyroxine 25 mcg Tablet PO (12:42)
[2023-03-24] MEDS: multivitamin therapeutic Tablet 1 TAB PO (12:43)
[2023-03-24] MEDS: topiramate 100 mg Tablet 200 MG PO (20:33)
[2023-03-24] MEDS: atorvastatin 40 mg Tablet PO (20:33)
[2023-03-24] MEDS: primidone 50 mg Tablet PO (20:34)
[2023-03-25] VITALS (9 sets, daily range): BP systolic 87–126; BP diastolic 47–72; PULSE 62–65; RESP 18–22; TEMP 36.4; O2SAT 91–96; BMI 29.7
[2023-03-25] MEDS: sodium chloride 0.9% 1,000 ML 135 ML IV (00:30)
[2023-03-25] MEDS: levothyroxine 25 mcg Tablet PO (05:32)
--- NOTE | 2023-03-25 07:49 | P.DS_ITS ---
Discharge Providers Date of Admission: 03/23/23 19:26 Date of Discharge: March 25, 2023 Attending Provider at Admission: Casey Martin MD Attending Provider at Discharge: Casey Martin MD Primary Care Provider: Bola Cervantes MD Diagnoses at Discharge Discharge Diagnosis (1) ST elevation myocardial infarction (STEMI): Status: Acute (2) Memory loss: Status: Acute (3) Seizure disorder: Status: Acute Reason for Visit Reason for Visit: chest pain Brief History: Patient told her family members that she did not feel well on the day of admission. There was some description of chest discomfort, nausea and achiness of the arm. Her son brought her to the emergency room where she was found to have ST segment elevation in the inferior leads. Hospital Course Hospital Course She was taken to the cardiac catheterization laboratory where her right coronary artery was found to be occluded. The occlusion was actually in the midportion of the vessel however thrombus had propagated retrograde up to near the ostium of the vessel. The vessel was stented primarily. Upon stenting there was significant thrombus burden which embolized downstream and caused no reflow. She also developed bradycardia and hypotension. She was administered fluids. She was given an Aggrastat bolus down the vessel and an Aggrastat drip intravenously. Initially I tried intracoronary nitroglycerin. This was successful in reestablishing flow minimally. I then carefully used 200 mcg of nicardipine intracoronary. This ultimately reestablish flow. By the time the procedure was completed there was AMIRAH-3 flow. She tolerated the procedure well. No complications with respect to the right radial artery entry site. No further bradycardia, heart block or arrhythmias. Her CBC was unremarkable. BUN and creatinine were 27 and 1.3 respectively. The rest of the electrolytes were unremarkable. Glucoses were normal. Her peak troponin at 6 hours was 2508. Cholesterol 278 with an LDL of 153. Aspirin, Plavix and a statin were added. I did not add a beta-akila during the hospitalization or at the time of discharge due to persistent bradycardia. This can be added as an outpatient if necessary. Physical Exam Narrative: GENERAL: Pleasantly mildly confused but in no distress HEENT: Exam within normal limits. [] NECK: Supple without jugular vein distention. The carotid upstroke is normal without bruits. [] BACK: Exam normal. [] LUNGS: Clear. [] HEART: Regular rate and rhythm. [] ABDOMEN: Benign without organomegaly or tenderness. [] EXTREMITIES: No edema. At the time of discharge the right radial artery entry site is flat, dry without bleeding or hematoma or any other vascular anomaly. There is a 1+ pulse. NEUROLOGIC: Exam normal. [] SKIN: Unremarkable. [] Discharge Data Studies Completed and Pending Completed Studies During Hospitalization Category Date Time Status CUSTOMER SERVICE REP request for service Stat Exams 03/23/23 17:06 Completed XR chest 1V portable [id number] Stat Exams 03/23/23 16:41 Completed Radiology Impressions Chest X-Ray 03/23/23 16:41 IMPRESSION: 1. Borderline cardiac silhouette size with mild pulmonary vascular congestion but without overt interstitial edema. 2. Mild left basilar atelectasis. A small left pleural effusion may be present. 3. A 3.5 cm left upper quadrant density may represent a caliceal renal stone, nonemergent sonographic evaluation recommended. Laboratory Results WBC 7.97 10^3/uL (3.29-11.43) 03/23/23 17:05 RBC 4.68 10^6/uL (3.85-5.65) 03/23/23 17:05 Hgb 14.10 g/dL (11.27-16.99) 03/23/23 17:05 Hct 43.8 % (36-47) 03/23/23 17:05 MCV 93.6 fl (85-98) 03/23/23 17:05 MCH 30.1 pg (27-33) 03/23/23 17:05 MCHC 32.2 g/dL (30-55) 03/23/23 17:05 RDW 12.8 % (12.1-15.1) 03/23/23 17:05 Plt Count 311 10^3/cmm (157-399) 03/23/23 17:05 MPV 8.6 fL (7.4-10.4) 03/23/23 17:05 Neut % (Auto) 82.8 % 03/23/23 17:05 Lymph % (Auto) 9.5 % 03/23/23 17:05 Meigs % (Auto) 4.9 % 03/23/23 17:05 Eos % (Auto) 1.0 % 03/23/23 17:05 Baso % (Auto) 1.4 % 03/23/23 17:05 Neut # (Auto) 6.60 10^3/uL (1.8-7.7) 03/23/23 17:05 Lymph # (Auto) 0.8 10^3/uL (0.8-4.8) 03/23/23 17:05 Meigs # (Auto) 0.4 10^3/uL (0.2-0.9) 03/23/23 17:05 Eos # (Auto) 0.1 10^3/uL (0.0-0.8) 03/23/23 17:05 Baso # (Auto) 0.1 10^3/uL (0.0-0.1) 03/23/23 17:05 Nucleated RBC % (auto) 0 % 03/23/23 17:05 Nucleated RBCs # 0.0 /100WBC 03/23/23 17:05 PT 14.30 SECONDS (12.1-14.9) 03/23/23 16:57 INR 1.07 (0.8-1.2) 03/23/23 16:57 Sodium 142 mmol/L (136-145) 03/23/23 16:57 Potassium 4.0 mmol/L (3.5-5.1) 03/23/23 16:57 Chloride 106 mmol/L (98-107) 03/23/23 16:57 Carbon Dioxide 23 mmol/L (22-29) 03/23/23 16:57 Anion Gap 17.0 (5-19) 03/23/23 16:57 BUN 27 mg/dL (8-23) H 03/23/23 16:57 Creatinine 1.3 mg/dL (0.5-0.9) H 03/23/23 16:57 GFR Calculation Not Reportable 03/23/23 16:57 Glucose 102 mg/dL (65-115) 03/23/23 16:57 Calculated Osmolality 299 mOsm/kg (285-295) H 03/23/23 16:57 Calcium 10.1 mg/dL (8.5-10.5) 03/23/23 16:57 Total Bilirubin 0.2 mg/dL (0.15-1.2) 03/23/23 16:57 AST 17 U/L (0-32) 03/23/23 16:57 ALT 11 U/L (0-33) 03/23/23 16:57 Alkaline Phosphatase 88 U/L (35-105) 03/23/23 16:57 Troponin T Baseline 34 ng/L (0-10) H 03/23/23 16:57 Troponin T 120 Minute 1048 ng/L (0-10) H 03/23/23 20:24 Delta Troponin T 1014 ABS# (0-10) H* 03/23/23 20:24 Troponin T Hi Sens 6Hr 2508 ng/L (0-10) H 03/23/23 22:34 Troponin T Hi Sens 6Hr Delta 2474 ng/L (0-12) H* 03/23/23 22:34 Total Protein 6.6 g/dL (6.6-8.7) 03/23/23 16:57 Albumin 3.9 g/dL (3.5-5.2) 03/23/23 16:57 Globulin 2.7 g/dL (1.3-4.6) 03/23/23 16:57 Lipase 102 U/L (13-60) H 03/23/23 16:57 Procedures Performed Left heart catheterization, coronary angiography, stenting of the right coronary artery Vitals Last Vital Signs Temp 97.6 F 03/25/23 07:00 Pulse 63 03/25/23 07:00 Resp 18 03/25/23 07:00 BP 108/72 03/25/23 07:00 Pulse Ox 96 03/25/23 07:00 O2 Del Method Room Air 03/25/23 04:00 Discharge Plan Discharge Patient Disposition: Home Condition: Stable Prescriptions: New aspirin 81 mg Tablet,Delayed Release (Dr/Ec) 81 mg PO DAILY Qty: 100 3RF atorvastatin 40 mg Tablet 40 mg PO BEDTIME Qty: 30 3RF nitroglycerin 0.4 mg Tablet, Sublingual 0.4 mg sublingual Q5M PRN (Reason: Chest Pain) Qty: 25 2RF clopidogrel 75 mg Tablet 75 mg PO DAILY Qty: 30 3RF Continued Centrum Silver Women 8 mg iron-400 mcg-300 mcg tablet 1 tab PO DAILY levothyroxine 25 mcg tablet 25 mcg PO DAILY memantine 10 mg tablet 20 mg PO DAILY primidone 50 mg tablet 50 mg PO DAILY Topamax 200 mg tablet 200 mg PO DAILY Discharge Orders: Discharge Order (Routine); Ordered 01/18/24 Ordered By: Casey Martin Referrals: Bola Cervantes MD [Primary Care Provider] - Casey Martin MD [Physician] - 3 months Mikala Zuñiga FNP [Nurse Practitioner] - 7-10 days (Right radial artery check and chemistry panel.) Discharge Diet: Usual diet and Cardiac Discharge Activity: Resume usual activity and Limit activity as instructed Patient Instructions: Opioid Safety Activity Restrictions/Additional Instructions: Do not lift anything with the right arm for 2 days. Discharge Attestations Time Spent in Discharge Care*: greater than 30 min Quality Metrics Clinical Quality Measures [ Acute Myocardial Infaction { Clinical Trial Participant: No; Contraindication to aspirin: None; Aspirin prescribed; Contraindication to statin: None; Statin prescribed; Contraindication to PCI: None; PCI performed;}] Coding Level of Care Code 58144 Total time (in minutes) for Discharge: [address] elevation myocardial infarction (STEMI) I21.3 Memory loss R41.3 Seizure disorder G40.907
[2023-03-25] MEDS: clopidogrel 75 mg Tablet PO (08:40)
[2023-03-25] MEDS: aspirin 81 mg EC Tablet PO (08:40)
[2023-03-25] MEDS: memantine 5 mg tablet 20 MG PO (08:40)
[2023-03-25] MEDS: multivitamin therapeutic Tablet 1 TAB PO (08:40)
[2023-03-25] MEDS: pneumococcal (23 valent) SDV 0.5 mL IM (08:41)
[2023-03-25] MEDS: flu vacc pf 2023-24 (6 mos+) 60 MCG IM (09:03)
--- NOTE | 2023-03-25 11:11 | PC.NURSE ---
Discharge Note Patient discharged to [home] via [w/c to POV] accompanied by [family]. Discharge instructions reviewed with patient and/or customer retention representative. Mobile pharmacy medications and/or prescriptions provided. Belongings/home medications returned.
== END 2023-03-25 10:57 | disposition home or self-care (01) | DRG 322 ==
LOC: ER 17:28 → CCL 17:31 → ICU 19:27
PROVIDERS: Admitting Provider Internal Medicine Cardiovascular Disease; Emergency Provider Emergency Medicine; PCP Internal Medicine; Visit Provider Internal Medicine Cardiovascular Disease
PROC: 027034Z Dilation of Coronary Artery, One Artery with Drug-eluting Intraluminal Device, Percutaneous Approach (ICD-10-PCS; principal; 2023-03-23 17:00)
PROC: 027034Z Dilation of Coronary Artery, One Artery with Drug-eluting Intraluminal Device, Percutaneous Approach (ICD-10-PCS; 2023-03-23 17:00)
DX: I21.11 ST elevation (STEMI) myocardial infarction involving right coronary artery (principal); I44.2 Atrioventricular block, complete; R41.3 Other amnesia; G40.909 Epilepsy, unspecified, not intractable, without status epilepticus; I95.9 Hypotension, unspecified
CPT/HCPCS: 36415; 71045; 80053; 83690; 84484; 85025; 85610; 90471; 90686; 90732; 93005; 93458; 96365; 96367; 96374; 96375; 99152; 99153; 99285; C1769; C1874; C1887; C1894; C9600; J0461; J1644; J2250; J3010; J3490; J7030; Q9967

== ENCOUNTER → 2023-04-21 14:32 | Outpatient (BNVA) | payer MEDICARE, OTHER, MEDICAID, SELFPAY | PROVIDERS: PCP Internal Medicine; Visit Provider Nurse Practitioner Family | DX: I25.10 Atherosclerotic heart disease of native coronary artery without angina pectoris (principal); Z79.899 Other long term (current) drug therapy | CPT/HCPCS: 36415; 80048; 99214 ==

== ENCOUNTER → 2023-09-02 11:09 | Outpatient (BNVA) | payer MEDICARE, OTHER, MEDICAID, SELFPAY | PROVIDERS: PCP Internal Medicine; Visit Provider Internal Medicine Cardiovascular Disease | DX: I25.2 Old myocardial infarction (principal); I25.10 Atherosclerotic heart disease of native coronary artery without angina pectoris; R41.3 Other amnesia; G40.909 Epilepsy, unspecified, not intractable, without status epilepticus | CPT/HCPCS: 99213 ==

== ENCOUNTER 2024-02-06 23:27 | Inpatient (IN) | payer MEDICARE, OTHER, SELFPAY ==
[2024-02-06 23:37] VITALS: BP 126/73; PULSE 79; RESP 18; TEMP 36.6; O2SAT 96; BMI 29.5
--- NOTE | 2024-02-06 23:41 | ECG_ITS ---
[facility]24[facility]06 Pat Name: Destiny Hernandez Department: Room: Gender: Female Probation Worker: : 1945 Requested By: Car Blakely Order Number: [id number] MD: Jarek Olivares M.D. Measurements Intervals [place] Rate: 79 P: 38 RI: 201 QRS: 63 QRSD: 104 T: 17 QT: 388 QTc: 447 Interpretive Statements SINUS RHYTHM Compared to ECG 03/23/2023 16:41:02 First degree AV block no longer present Myocardial infarct finding no longer present ST (T wave) deviation no longer present Electronically Signed On 02-08-2024 21:45:35 BUSINESS AND FINANCIAL COUNSEL by Jarek Olivares M.D. [email or web address]
[2024-02-06 23:51] LABS: Basophils % 0.4 %; Lymphocytes # 0.5 10^3/uL (0.8-4.8); Lymphocytes % 5.2 %; Mean Corpuscular HGB Conc 31.6 g/dL (30-55); Mean Corpuscular Hemoglobin 28.3 pg (27-33); Mean Corpuscular Volume 89.6 fl (85-98); Mean Platelet Volume 9.4 fL (7.4-10.4); Monocytes # 0.4 10^3/uL (0.2-0.9); Monocytes % 3.8 %; Neutrophils # 8.54 10^3/uL (1.8-7.7); Neutrophils % 90.3 %; Nucleated Red Blood Cells % 0 %; Platelet Count 288 10^3/cmm (157-399); Red Blood Count 4.13 10^6/uL (3.85-5.65); Red Cell Distribution Width 14.9 % (12.1-15.1); White Blood Count 9.46 10^3/uL (3.29-11.43)
[2024-02-06] MEDS: sodium chloride 0.9% 1,000 ML 999 ML IV (23:54)
[2024-02-07] VITALS (8 sets, daily range): BP systolic 105–151; BP diastolic 53–82; PULSE 74–83; RESP 17–18; TEMP 36.8–37.3; O2SAT 95–98; BMI 30.3
--- NOTE | 2024-02-07 | CTR_ITS ---
PROCEDURE INFORMATION: Exam: CT Head Without Contrast Exam date and time: 02/07/2024 12:08 AM Age: 78 years old Clinical indication: Injury or trauma; Blunt trauma (contusions or hematomas); Altered mental status/memory loss; Confusion or disorientation; Patient HX: Patient sustained an unwitnessed fall five days ago and is having increasing confusion. ; Additional info: Fall AMS TECHNIQUE: Imaging protocol: Computed tomography of the head without contrast. Radiation optimization: All CT scans at this facility use at least one of these dose optimization techniques: automated exposure control; mA and/or kV adjustment per patient size (includes targeted exams where dose is matched to clinical indication); or iterative reconstruction. COMPARISON: CT head thrombolytic [id number] 05/06/2022 6:07 PM RADIATION DOSE METRICS: Total DLP (mGy-cm): 1009.68 FINDINGS: Brain: Age-related brain parenchymal atrophy. Areas of hypoattenuation in the periventricular and subcortical deep white matter likely on the basis of chronic microvascular ischemic changes. No acute intra cranial hemorrhage. No mass effect or midline shift. No definitive CT evidence of acute territorial infarction. Cerebral ventricles: Prominence of the lateral ventricular system likely on the basis of ex vacuo dilatation. Paranasal sinuses: Visualized sinuses are unremarkable. No fluid levels. Mastoid air cells: Visualized mastoid air cells are well aerated. Bones: Intact calvarium. . Soft tissues: Unremarkable. CT/CT head wo con* [id number] IMPRESSION: No acute intracranial process. Senescent changes.
--- NOTE | 2024-02-07 | CTR_ITS ---
PROCEDURE INFORMATION: Exam: CT Cervical Spine Without Contrast Exam date and time: 02/07/2024 12:11 AM Age: 78 years old Clinical indication: Injury or trauma; Fall; Blunt trauma; Patient HX: Patient sustained an unwitnessed fal five days ago and having increasing confusion. ; Additional info: Fall AMS TECHNIQUE: Imaging protocol: Computed tomography of the cervical spine without contrast. Radiation optimization: All CT scans at this facility use at least one of these dose optimization techniques: automated exposure control; mA and/or kV adjustment per patient size (includes targeted exams where dose is matched to clinical indication); or iterative reconstruction. COMPARISON: CT head wo con* [id number] 02/07/2024 12:08 AM RADIATION DOSE METRICS: Total DLP (mGy-cm): 438.47 FINDINGS: Bones: No acute fracture. Normal alignment. No significant disc bulge or herniation. No severe spinal canal stenosis. Varying degrees of neural foraminal narrowing due to multilevel degenerative changes. Lungs: Lung apices are normal. Soft tissues: Unremarkable. CT/CT cervical spin wo con* [id number] IMPRESSION: No acute fracture or traumatic malalignment of the cervical spine.
--- NOTE | 2024-02-07 | CTR_ITS ---
PROCEDURE INFORMATION: Exam: CT Chest With Contrast; Diagnostic Exam date and time: 02/07/2024 12:14 AM Age: 78 years old Clinical indication: Injury or trauma; Blunt trauma (contusions or hematomas); Patient HX: Patient sustained an unwitnessed fall five days ago. C/O persistent sternal pain with lower abd/pelvic and sacral pain. ; Additional info: Fall sternal pain and lower abd pelvis/sacral pain TECHNIQUE: Imaging protocol: Diagnostic computed tomography of the chest with contrast. Radiation optimization: All CT scans at this facility use at least one of these dose optimization techniques: automated exposure control; mA and/or kV adjustment per patient size (includes targeted exams where dose is matched to clinical indication); or iterative reconstruction. Contrast material: OMNI 350; Contrast volume: 80 ml; Contrast route: INTRAVENOUS (IV); COMPARISON: CR XR chest 1V portable [id number] 03/23/2023 5:06 PM RADIATION DOSE METRICS: Total DLP (mGy-cm): 2282.65 FINDINGS: Lungs: Bibasilar atelectasis and/or scarring. Pleural spaces: Unremarkable. No pneumothorax. No pleural effusion. Heart: Mild cardiomegaly. No pericardial effusion. Lymph nodes: Calcified left hilar lymph nodes. Vasculature: Apparent filling defect within pulmonary arteries to the left upper lobe. Nonocclusive thrombus within a segmental branch to the left upper lobe seen on image 16 of series 3. There is right ventricular dilatation compared to the left however given the burden of pulmonary embolism it is out of proportion to the degree of dilatation. This may not reflect acute right heart strain. Stomach: Moderately sized paraesophageal hernia. Bones/joints: Limited evaluation of the ribs for subtle fractures due to motion artifact. However there is no gross displaced fracture. Soft tissues: Unremarkable. PROCEDURE INFORMATION: Exam: CT Abdomen And Pelvis With Contrast Exam date and time: 02/07/2024 12:14 AM Age: 78 years old Clinical indication: Injury or trauma; Blunt trauma (contusions or hematomas); Patient HX: Patient sustained an unwitnessed fall five days ago. C/O persistent sternal pain with lower abd/pelvic and sacral pain. ; Additional info: Fall sternal pain and lower abd pelvis/sacral pain TECHNIQUE: Imaging protocol: Computed tomography of the abdomen and pelvis with contrast. Radiation optimization: All CT scans at this facility use at least one of these dose optimization techniques: automated exposure control; mA and/or kV adjustment per patient size (includes targeted exams where dose is matched to clinical indication); or iterative reconstruction. Contrast material: OMNI 350; Contrast volume: 80 ml; Contrast route: INTRAVENOUS (IV); COMPARISON: CR XR chest 1V portable [id number] 03/23/2023 5:06 PM RADIATION DOSE METRICS: Total DLP (mGy-cm): 2282.65 FINDINGS: Liver: Normal. No mass. Gallbladder and biliary ducts: Normal. No calcified stones. No ductal dilation. Pancreas: Normal. No ductal dilation. Spleen: Normal. No splenomegaly. Adrenal glands: Normal. No mass. Kidneys and ureters: No hydronephrosis. Bilateral nonobstructing caliceal calculi. Stomach and bowel: No bowel obstruction. Colonic diverticulosis. Appendix: No evidence of appendicitis. Intraperitoneal space: Unremarkable. No free air. No significant fluid collection. Vasculature: Unremarkable. No abdominal aortic aneurysm. Lymph nodes: Unremarkable. No enlarged lymph nodes. Urinary bladder: Limited evaluation of the urinary bladder due to underdistention. Reproductive: Unremarkable as visualized. Bones/joints: Unremarkable. No acute fracture. Soft tissues: Bilateral fat inguinal hernias. CT/CT chest abdpel w/*[id number] IMPRESSION: 1. No evidence of acute posttraumatic changes within the thorax. 2. There is a filling defect within a segmental branch of the left upper lobe. This may reflect a nonocclusive thrombus. Correlate with D-dimer. There is also dilatation of the right ventricle compared to the left however it was not felt that this is right ventricular strain due to pulmonary embolism given the relatively low degree of pulmonary embolic burden. 3. Moderately sized paraesophageal hernia. IMPRESSION: 1. No obvious posttraumatic changes to the abdomen or pelvis. 2. Limited evaluation of the urinary bladder due to underdistention. Correlate urinalysis to exclude cystitis.
[2024-02-07 00:03] LABS: INR 1.15 (0.8-1.2)
[2024-02-07 00:04] LABS: Partial Thromboplastin Time 25.2 SECONDS (23.9-36.7)
[2024-02-07 00:08] LABS: Troponin(5th) Baseline 22 ng/L (0-10)
[2024-02-07 00:09] LABS: Lactic Sepsis W/Reflex 1.4 mmol/L (0.5-2.2)
[2024-02-07 00:15] LABS: Alanine Aminotransferase 27 U/L (0-33); Albumin Level 3.9 g/dL (3.5-5.2); Alkaline Phosphatase 98 U/L (35-105); Anion Gap 18.3 (5-19); Aspartate Amino Transferase 34 U/L (0-32); Blood Urea Nitrogen 28 mg/dL (8-23); C Reactive Protein 18.7 mg/L (0.0-4.9); Calcium 9.7 mg/dL (8.5-10.5); Carbon Dioxide 18 mmol/L (22-29); Chloride 107 mmol/L (98-107); Creatine Phosphokinase 145 U/L (26-192); Creatinine Clr Calc Pharmacy 36.5409; Glucose 149 mg/dL (65-115); Osmolality Calculated 296 mOsm/kg (285-295); Potassium 4.3 mmol/L (3.5-5.1); Sodium 139 mmol/L (136-145); Total Bilirubin 0.4 mg/dL (0.15-1.2); Total Protein 6.9 g/dL (6.6-8.7)
[2024-02-07] MEDS: iohexol 350 mg/mL 500 mL Btl (per mL) IV (00:16)
--- NOTE | 2024-02-07 00:53 | ED_ITS ---
HPI - Fall 2 General: Chief Complaint: Fall Stated Complaint: fall slur speech not feeling right Time Seen by Provider: 02/06/24 23:33 History of Present Illness: 78-year-old female who had a fall outsid e of her house on Wednesday. Family notes that she probably laid there for a couple of hours before her son found her. She at that time according to her son complained of right-sided chest and rib pain. Since then, she has had mild mental status change, and that she has been a bit more lethargic, slurring her speech some. She does have a history of baseline dementia. Family notes this is a bit worse. No vomiting. She complains of sacral pain and lower abdominal pain as well. This has not improved over the course of the week, but is instead worsened to some degree. No fever. No cough. No significant shortness of breath. Related Data Home Medications Medication Instructions Recorded Confirmed [id number] 8 mg-folic 400 1 tab PO DAILY 11/28/19 09/02/23 mcg-K 50 mcg-lutein 300 mcg tablet (Centrum Silver Women) levothyroxine 25 mcg tablet 25 mcg PO DAILY 03/24/23 09/02/23 memantine 10 mg tablet 20 mg PO DAILY 03/24/23 09/02/23 primidone 50 mg tablet 50 mg PO DAILY 03/24/23 09/02/23 topiramate 200 mg tablet (Topamax) 200 mg PO DAILY 03/24/23 09/02/23 aspirin 81 mg tablet,delayed 81 mg PO DAILY PRN 09/02/23 release Previous Rx's Medication Instructions Recorded nitroglycerin 0.4 mg sublingual 0.4 mg sublingual Q5M PRN Chest 03/25/23 tablet Pain #25 tabs atorvastatin 40 mg tablet See Rx Instructions .Route 07/12/23 .COMPLEX #90 tabs clopidogrel 75 mg tablet See Rx Instructions .Route 07/12/23 .COMPLEX #90 tabs Allergies Allergy/AdvReac Type Severity Reaction Status Date / Time ampicillin Allergy Unknown Verified 02/06/24 23:46 Penicillins Allergy Unknown Verified 02/06/24 23:46 PFSH ED 2 PFSH: Medical History Coronary artery disease Seizure disorder Family History Mother Diabetes Father Heart disease Social History Smoking and tobacco/nicotine status: never used tobacco/nicotine Alcohol intake: never Substance/Drug Use: never Adopted: No Marital status: Number of children: 2 service: No Physical Exam 2 Const: COMMON NORMALS: no acute distress EXAM LIMITATIONS: altered mental status GENERAL APPEARANCE: cooperative, comfortable, well kempt and frail appearing; not ill appearing ORIENTATION/CONSCIOUSNESS: Yes awake, Yes oriented to person and Yes oriented to place; not oriented to time HENMT: COMMON NORMALS: normocephalic, atraumatic and Normal external nose present HEAD & SCALP: normocephalic and atraumatic FACE & SINUS: normal facial exam and face symmetric NOSE: Normal external nose present and Normal nares present THROAT: posterior oropharynx normal Eye: COMMON NORMALS: Equal, round and reactive pupils present and EOMs intact bilaterally PUPIL: Yes Equal, round and reactive pupils present Neck/C-Spine: GENERAL: Yes trachea midline and No anterior neck swelling C ERVICAL SPINE: Yes cervical ROM normal and No Cervical spine tenderness Chest: COMMONS NORMALS: normal inspection of the chest CHEST: Yes Symmetrical chest wall rise Resp: COMMON NORMALS: normal respiratory effort, No use of accessory muscles and clear to auscultation bilaterally AUSCULTATION: clear to auscultation bilaterally Cardio: COMMON NORMALS: regular rate and regular rhythm RATE: regular rate RHYTHM: regular rhythm GI: COMMON NORMALS: Normal to inspection, nondistended, normoactive bowel sounds present and Soft to palpation PALPATION: Yes Soft to palpation and Yes Tenderness to palpation present (GI) (Lower abdomen) : COMMON NORMALS: Yes no CVA tenderness BLADDER/KIDNEY EXAM: Yes no CVA tenderness Back/Pelvis: COMMON NORMALS: no CVA tenderness and thoracic and lumbar spine normal to inspection THORACIC SPINE/UPPER BACK: No thoracic spinal tenderness LUMBAR SPINE/LOWER BACK: No lumbar spinal tenderness Extremity: NARRATIVE EXTREMITY EXAM: Nonradicular sacral pain on straight leg raise testing bilaterally. Slight effusion to the right knee with some mild tenderness. Minimal ecchymosis medially. Neuro: SENSORIUM/ORIENTATION: Yes oriented to person, Yes oriented to place and No oriented to time CRANIAL NERVES: Yes CN normal except as noted C OORDINATION/BALANCE: wpufgv-yp-eeca test normal SPEECH: speech normal M OTOR EXAM: Pronator motor function not present COORDINATION: [id number]-[id number] test normal OTHER: Symmetrical weakness bilateral lower extremity Psych: APPEARANCE: Yes well kempt Course 2 Vital Signs: Vital signs: Vital Signs Temperature 97.9 F 02/06/24 23:37 Pulse Rate 79 02/07/24 01:31 Respiratory Rate 18 02/07/24 01:31 Blood Pressure 151/82 02/07/24 01:31 Pulse Oximetry 97 02/07/24 01:31 Oxygen Delivery Me thod Room Air 02/06/24 23:37 MDM - Fall Medical Decision Making Vitals are stable here. CBC is normal. Creatinine is slightly elevated at 1.4. Bicarbonate level is 18. She is given a liter of fluid. CT of the head and cervical spine are negative. Her troponin is at baseline. Her CRP is 19. CT of the chest shows a slight filling defect in the left upper lobe that could reflect a nonocclusive thrombus. There is dilatation of the right ventricle, but not felt to be acute right ventricular strain. No other findings in the chest abdomen or pelvis. The patient has a significant urinary tract infection. Blood cultures been drawn. She will receive a gram of Rocephin. That combined with nonocclusive pulmonary embolus which will require anticoagulation, or an admission. Spoke with hospitalist. She agrees. Lab Data 02/06/24 23:46 02/06/24 23:46 Radiology Impressions Cervical Spine CT 02/07/24 00:00 IMPRESSION: No acute fracture or traumatic malalignment of the cervical spine. Chest/Abdomen/Pelvis CT 02/07/24 00:00 IMPRESSION: 1. No evidence of acute posttraumatic changes within the thorax. 2. There is a filling defect within a segmental branch of the left upper lobe. This may reflect a nonocclusive thrombus. Correlate with D-dimer. There is also dilatation of the right ventricle compared to the left however it was not felt that this is right ventricular strain due to pulmonary embolism given the relatively low degree of pulmonary embolic burden. 3. Moderately sized paraesophageal hernia. IMPRESSION: 1. No obvious posttraumatic changes to the abdomen or pelvis. 2. Limited evaluation of the urinary bladder due to underdistention. Correlate urinalysis to exclude cystitis. Head CT 02/07/24 00:00 IMPRESSION: No acute intracranial process. Senescent changes. Laboratory Results WBC 9.46 10^3/uL (3.29-11.43) 02/06/24 23:46 RBC 4.13 10^6/uL (3.85-5.65) 02/06/24 23:46 Hgb 11.70 g/dL (11.27-16.99) 02/06/24 23:46 Hct 37.0 % (36-47) 02/06/24 23:46 MCV 89.6 fl (85-98) 02/06/24 23:46 MCH 28.3 pg (27-33) 02/06/24 23:46 MCHC 31.6 g/dL (30-55) 02/06/24 23:46 RDW 14.9 % (12.1-15.1) 02/06/24 23:46 Plt Count 288 10^3/cmm (157-399) 02/06/24 23:46 MPV 9.4 fL (7.4-10.4) 02/06/24 23:46 Neut % (Auto) 90.3 % 02/06/24 23:46 Lymph % (Auto) 5.2 % 02/06/24 23:46 [place] % (Auto) 3.8 % 02/06/24 23:46 Eos % (Auto) 0.0 % 02/06/24 23:46 Baso % (Auto) 0.4 % 02/06/24 23:46 Neut # (Auto) 8.54 10^3/uL (1.8-7.7) H 02/06/24 23:46 Lymph # (Auto) 0.5 10^3/uL (0.8-4.8) L 02/06/24 23:46 [place] # (Auto) 0.4 10^3/uL (0.2-0.9) 02/06/24 23:46 Eos # (Auto) 0.0 10^3/uL (0.0-0.8) 02/06/24 23:46 Baso # (Auto) 0.0 10^3/uL (0.0-0.1) 02/06/24 23:46 Nucleated RBC % (auto) 0 % 02/06/24 23:46 Nucleated RBCs # 0.0 /100WBC 02/06/24 23:46 PT 15.10 SECONDS (12.1-14.9) H 02/06/24 23:46 INR 1.15 (0.8-1.2) 02/06/24 23:46 APTT 25.2 SECONDS (23.9-36.7) 02/06/24 23:46 Sodium 139 mmol/L (136-145) 02/06/24 23:46 Potassium 4.3 mmol/L (3.5-5.1) 02/06/24 23:46 Chloride 107 mmol/L (98-107) 02/06/24 23:46 Carbon Dioxide 18 mmol/L (22-29) L 02/06/24 23:46 Anion Gap 18.3 (5-19) 02/06/24 23:46 BUN 28 mg/dL (8-23) H 02/06/24 23:46 Creatinine 1.4 mg/dL (0.5-0.9) H 02/06/24 23:46 GFR Calculation Not Reportable 02/06/24 23:46 Glucose 149 mg/dL (65-115) H 02/06/24 23:46 Calculated Osmolality 296 mOsm/kg (285-295) H 02/06/24 23:46 Lactic Acid 1.4 mmol/L (0.5-2.2) 02/06/24 23:46 Calcium 9.7 mg/dL (8.5-10.5) 02/06/24 23:46 Total Bilirubin 0.4 mg/dL (0.15-1.2) 02/06/24 23:46 AST 34 U/L (0-32) H 02/06/24 23:46 ALT 27 U/L (0-33) 02/06/24 23:46 Alkaline Phosphatase 98 U/L (35-105) 02/06/24 23:46 Creatine Kinase 145 U/L (26-192) 02/06/24 23:46 Troponin T Baseline 22 ng/L (0-10) H 02/06/24 23:46 Troponin T 120 Minute 20.40 ng/L (0-10) H 02/07/24 01:46 Delta Troponin T -1.60 ABS# (0-10) L 02/07/24 01:46 C-Reactive Protein 18.7 mg/L (0.0-4.9) H 02/06/24 23:46 Total Protein 6.9 g/dL (6.6-8.7) 02/06/24 23:46 Albumin 3.9 g/dL (3.5-5.2) 02/06/24 23:46 Globulin 3.0 g/dL (1.3-4.6) 02/06/24 23:46 Urine Color Yellow (Yellow) 02/07/24 01:23 Urine Appearance Clear (CLEAR) 02/07/24 01:23 Urine pH 5.5 (5-7) 02/07/24 01:23 Ur Specific [place] 1.046 (1.005-1.030) H 02/07/24 01:23 Urine Protein 1+ (Negative) A 02/07/24 01:23 Urine Glucose (UA) Negative (Normal) 02/07/24 01:23 Urine Ketones 1+ (Negative) H 02/07/24 01:23 Urine Blood 3+ (Negative) A 02/07/24 01:23 Urine Nitrate Negative (Negative) 02/07/24 01:23 Urine Bilirubin Negative (Negative) 02/07/24 01:23 Urine Urobilinogen 1.0 mg/dL (Negative) 02/07/24 01:23 Ur Leukocyte Esterase 3+ (Negative) A 02/07/24 01:23 Urine RBC 21-50 /hpf (0-2) H 02/07/24 01:23 Urine WBC Too numerous to cnt /hpf (0-5) H 02/07/24 01:23 Ur Squamous Epith Cells 10-15 /hpf (0-5) H 02/07/24 01:23 Amorphous Sediment Not Reportable 02/07/24 01:23 Urine Bacteria None seen /hpf (NONE) 02/07/24 01:23 Hyaline Casts 30.18 /lpf 02/07/24 01:23 All radiology interpretation(s) finalized by discharge Discharge Plan Discharge Clinical Impression: Pulmonary embolism, Acute UTI, Acute alteration in mental status Condition: Fair Prescriptions: No Action Centrum Silver Women 8 mg iron-400 mcg-300 mcg tablet 1 tab PO DAILY aspirin 81 mg tablet,delayed release (DR/EC) 81 mg PO DAILY PRN clopidogrel 75 mg tablet See Rx Instructions .ROUTE .COMPLEX Qty: 90 3RF Dose Instruction: Take 1 tablet by mouth once daily Rx Instructions: Take 1 tablet by mouth once daily atorvastatin 40 mg tablet See Rx Instructions .ROUTE .COMPLEX Qty: 90 3RF Dose Instruction: TAKE 1 TABLET BY MOUTH ONCE DAILY AT BEDTIME Rx Instructions: TAKE 1 TABLET BY MOUTH ONCE DAILY AT BEDTIME levothyroxine 25 mcg tablet 25 mcg PO DAILY memantine 10 mg tablet 20 mg PO DAILY primidone 50 mg tablet 50 mg PO DAILY Topamax 200 mg tablet 200 mg PO DAILY nitroglycerin 0.4 mg Tablet, Sublingual 0.4 mg sublingual Q5M PRN (Reason: Chest Pain) Qty: 25 2RF Referrals: Bola Cervantes MD [Primary Care Provider] - Coding Level of Care Code ED [employer] Tender Helper for Adrián Turk
[2024-02-07 01:27] LABS: Bilirubin Urine Negative (Negative); Blood Urine 3+ (Negative); Glucose Urine UA Negative (Normal); Ketones Urine 1+ (Negative); Leukocyte Esterase Urine 3+ (Negative); Nitrate Urine Negative (Negative); Protein Urine 1+ (Negative); Urine Appearance Clear (CLEAR); Urine Color Yellow (Yellow); pH Urine 5.5 (5-7)
[2024-02-07 01:32] LABS: Bacteria Urine None Seen /hpf; Hyaline Casts Urine 30.18 /lpf; RBC Urine 21-50 /hpf (0-2); Specific Gravity, Urine 1.046 (1.005-1.030); Universal Test for UA Present (0)
[2024-02-07 01:41] LABS: Add Urine Microscopic? YES; WBC Urine TOO NUMEROUS TO CNT /hpf (0-5)
--- NOTE | 2024-02-07 01:41 | ECG_ITS ---
[facility] Date: 2024-02-07 Pat Name: Destiny Hernandez Department: Room: 277 Gender: Female Call Person: : 1945 Requested By: Car Blakely Order Number: [id number] Ag MD: Jarek Olivares M.D. Measurements Intervals [place] Rate: 90 P: 35 MN: 197 QRS: 55 QRSD: 104 T: 26 QT: 348 QTc: 428 Interpretive Statements SINUS RHYTHM LOW QRS VOLTAGE IN PRECORDIAL LEADS [QRS DEFLECTION < 1.0 mV IN CHEST LEADS] INCOMPLETE RIGHT BUNDLE BRANCH BLOCK [90+ ms QRS DURATION, TERMINAL R IN V1/V2, 40+ ms S IN I/aVL/V4/V5/V6] MINIMAL ST DEPRESSION [0.025+ mV ST DEPRESSION] Compared to ECG 02/07/2024 04:49:26 Low QRS voltage now present Incomplete right bundle-branch block now present ST (T wave) deviation now present First degree AV block no longer present T-wave abnormality no longer present Electronically Signed On 02-08-2024 22:00:30 PICTURE FRAMER by Jarek Olivares M.D. [email or web address]
[2024-02-07] MEDS: enoxaparin 80 mg/0.8 mL Syringe SUBCUT ×2 (02:13→16:07)
[2024-02-07] MEDS: cefTRIAXone 1,000 mg SDV 1000 MG IVP ×2 (02:59→07:13)
--- NOTE | 2024-02-07 04:49 | ECG_ITS ---
[facility] Date: 2024-02-07 Pat Name: Destiny Hernandez Department: Room: 277 Gender: Female Account Manager Relief: : 1945 Requested By: Car Blakely Order Number: [id number] Ag MD: Jarek Olivares M.D. Measurements Intervals [place] Rate: 77 P: 78 NH: 214 QRS: 69 QRSD: 108 T: 32 QT: 386 QTc: 438 Interpretive Statements SINUS RHYTHM WITH FIRST DEGREE AV BLOCK NONSPECIFIC T-WAVE ABNORMALITY Compared to ECG 02/06/2024 23:49:54 First degree AV block now present T-wave abnormality now present Electronically Signed On 02-08-2024 22:01:19 PROJECT FACILITATOR by Jarek Olivares M.D. [email or web address]
[2024-02-07 06:08] LABS: Troponin 5 6HR 25.42 ng/L (0-10); Troponin 5 6HR Delta 3.42 ng/L (0-12)
--- NOTE | 2024-02-07 06:48 | USCV_ITS ---
Destiny Hernandez Age: 78 Gender: F : 1945 Exam Date: 02/07/2024 12:41 Ordering Phys: Talya Alcala MD Technologist: Exam Location: [facility] [place] Indication: pe PROCEDURES: The venous duplex Doppler examination of both lower extremities was performed in the standard fashion. The following venous structures were evaluated: common femoral vein, profunda vein, proximal portion of the greater saphenous vein, superficial femoral vein, and the popliteal vein. In addition, the posterior tibial and peroneal trunk were evaluated. FINDINGS: Normal 2-D Doppler and augmentation and compressibility throughout the lower extremity venous structures. Additional imaging through the proximal calf veins also reveals no thrombus. Limited evaluation of the greater saphenous vein is patent with no thrombus. CONCLUSIONS No evidence of right lower extremity DVT. No evidence of left lower extremity DVT. Vinny Rajan MD (Electronically Signed) Final Date: 07 February 2024 15:52 S
--- NOTE | 2024-02-07 06:50 | P.HP_ITS ---
Providers/Chief Complaint 2 Admitting Physician: Talya Alcala MD Primary Care Provider: Bola Cervantes MD Chief Complaint: Fall wednesday slur speech not feeling right History of Present Illness Destiny Hernandez is a 78 year old female with a past medical history of cognitive difficulties and forgetfulness as reviewed from outpatient notes. Past medical history of acute inferior wall OH in March 2023. She is presenting to the hospital today brought in by family after having sustained a fall on Wednesday (Today is Wednesday). She had complained of some right-sided chest and rib maria del carmen patient is unable to participate in her history. n at the time she had the fall. She has been more lethargic ever since . There is no noted cough, dyspnea, palpi. Uncertain if the fall was a syncopal versus mechanical fall. Patient is unable to participate in her history. Review of Systems 2 General: Reports: ROS unobtainable due to mental status Medications/Allergies Home Medications Medication Instructions Recorded Confirmed Last Taken Type levothyroxine 25 mcg tablet 25 mcg PO DAILY 03/24/23 02/07/24 03/23/23 History primidone 50 mg tablet 50 mg PO DAILY 03/24/23 02/07/24 03/23/23 History topiramate 200 mg tablet (Topamax) 200 mg PO DAILY 03/24/23 02/07/24 03/23/23 History nitroglycerin 0.4 mg sublingual 0.4 mg sublingual Q5M PRN Chest 03/25/23 02/07/24 Unknown Rx tablet Pain #25 tabs aspirin 81 mg tablet,delayed 81 mg PO DAILY PRN Pain 09/02/23 02/07/24 Unknown History release atorvastatin 40 mg tablet 40 mg PO QPM 02/07/24 02/07/24 Unknown History clopidogrel 75 mg tablet (Plavix) 75 mg PO DAILY 02/07/24 02/07/24 Unknown History Allergies Allergy/AdvReac Type Severity Reaction Status Date / Time ampicillin Allergy Unknown Verified 02/06/24 23:46 Penicillins Allergy Unknown Verified 02/06/24 23:46 PFSH Acute 2 PFSH: Medical History Coronary artery disease Seizure disorder Family History Mother Diabetes Father Heart disease Social History Smoking and tobacco/nicotine status: never used tobacco/nicotine Alcohol intake: never Substance/Drug Use: never Adopted: No Marital status: Number of children: 2 service: No Vitals/I&O/Wt Last Vital Signs Temp 98.4 F 02/07/24 04:01 Pulse 78 02/07/24 04:01 Resp 18 02/07/24 04:01 BP 117/67 02/07/24 04:01 Pulse Ox 98 02/07/24 04:01 O2 Del Method Room Air 02/07/24 04:01 02/06/24 02/06/24 02/07/24 14:59 22:59 06:59 Intake Total 1000 / 1000 Balance 1000 / 1000 Weight last 48 hrs Weight 86.455 kg Weight 85.321 kg Weight 83.007 kg Physical Exam 2 Narrative: General: No acute distress, AO x2 HEENT: PERRLA, pupils bilaterally equal and reactive, pallors not present Chest: Normal vesicular breath sounds, no added sounds, equal good air entry bilaterally CVS: S1-S2 regular, no murmurs, no tachycardia, no gallops, no rubs Abdomen: Soft, nontender, no organomegaly, bowel sounds present Neuro: No focal deficits, no facial deformity, AO x2, power 5/5 in all limbs Data 02/06/24 23:46 02/06/24 23:46 Micro: Microbiology 02/07/24 02:35 Blood Culture - Preliminary Blood SPECIMEN COLLECTED 02/07/24 02:50 Blood Culture - Preliminary Blood SPECIMEN COLLECTED Other data: Launch?Image [address] [address] [address] Scan Report Signed Patient: Destiny Hernandez Unit #: [id number] : 1945 Age/Sex: 78 / F ADM Date: 02/06/24 Loc: ER Room/Bed: Attending Dr: Ordering Provider/Ordering MD: Car Martin DO Date of Service: 02/07/24 Procedure(s): CT head wo con* [id number] Accession Number(s): [id number] Report Number: [id number] PROCEDURE INFORMATION: Exam: CT Head Without Contrast Exam date and time: 02/07/2024 12:08 AM Age: 78 years old Clinical indication: Injury or trauma; Blunt trauma (contusions or hematomas); Altered mental status/memory loss; Confusion or disorientation; Patient HX: Patient sustained an unwitnessed fall five days ago and is having increasing confusion. ; Additional info: Fall AMS TECHNIQUE: Imaging protocol: Computed tomography of the head without contrast. Radiation optimization: All CT scans at this facility use at least one of these dose optimization techniques: automated exposure control; mA and/or kV adjustment per patient size (includes targeted exams where dose is matched to clinical indication); or iterative reconstruction. COMPARISON: CT head thrombolytic [id number] 05/06/2022 6:07 PM RADIATION DOSE METRICS: Total DLP (mGy-cm): 1009.68 FINDINGS: Brain: Age-related brain parenchymal atrophy. Areas of hypoattenuation in the periventricular and subcortical deep white matter likely on the basis of chronic microvascular ischemic changes. No acute intra cranial hemorrhage. No mass effect or midline shift. No definitive CT evidence of acute territorial infarction. Cerebral ventricles: Prominence of the lateral ventricular system likely on the basis of ex vacuo dilatation. Paranasal sinuses: Visualized sinuses are unremarkable. No fluid levels. Mastoid air cells: Visualized mastoid air cells are well aerated. Bones: Intact calvarium. . Soft tissues: Unremarkable. CT/CT head wo con* [id number] IMPRESSION: No acute intracranial process. Senescent changes. CT/CT chest abdpel w/*[id number] IMPRESSION: 1. No evidence of acute posttraumatic changes within the thorax. 2. There is a filling defect within a segmental branch of the left upper lobe. This may reflect a nonocclusive thrombus. Correlate with D-dimer. There is also dilatation of the right ventricle compared to the left however it was not felt that this is right ventricular strain due to pulmonary embolism given the relatively low degree of pulmonary embolic burden. 3. Moderately sized paraesophageal hernia. IMPRESSION: 1. No obvious posttraumatic changes to the abdomen or pelvis. 2. Limited evaluation of the urinary bladder due to underdistention. Correlate urinalysis to exclude cystitis. A&P Assessment and plan (1) Pulmonary embolism: CT of the chest showing filling defect within the segmental branch of the left upper lobe. Possible nonocclusive thrombus. There is dilatation of the right ventricle which may represent right heart strain. Start Lovenox 1 mg/kg subcutaneously every 12 hours for treatment of PE. Echocardiogram ordered to evaluate for right heart strain. EKG without acute ST-T wave changes. Troponin series with baseline at 22, 2- hour 820, 6-hour at 25. No significant delta at either 2 or 6-hour. Unlikely ACS. (2) Acute UTI: Start ceftriaxone 1 g IV every 24 hours empirically. Follow urine and blood cultures. Attestations 2 Medical Necessity Statement*: > 2 midnight stay is anticipated. Coding Level of Care Code Acute Code for Chg Fwd High MDM includes number and complexity of problems actively addressed during encounter, amount and/or complexity of data reviewed/ordered and described risk of complication, morbidity or mortality of management as documented Diagnoses Pulmonary embolism I26.99 Acute UTI N39.0
--- NOTE | 2024-02-07 07:34 | USCV_ITS ---
Destiny Hernandez Age: 78 Gender: F : 1945 Exam Date: 02/07/2024 12:17 Ordering Phys: Florencio Akins MD Technologist: Exam Location: [facility] [place] Indication: cp pe BP: 105 / 55 HR: 86 Rhythm: Sinus Technical Quality: Adequate MEASUREMENTS (Male / Female) Normal Values 2D ECHO LV Diastolic Diameter PLAX 4.3 cm 4.2 - 5.9 / 3.9 - 5.3 cm IVS Diastolic Thickness 1.3 cm 0.6 - 1.0 / 0.6 - 0.9 cm IVS Systolic Thickness 1.8 cm LVPW Diastolic Thickness 1.5 cm 0.6 - 1.0 / 0.6 - 0.9 cm LVPW Systolic Thickness 1.5 cm LVOT Diameter 2.0 cm LV Ejection Fraction 2D Teich 73.2 % LV Ejection Fraction MOD 4C 57.1 % LV Ejection Fraction MOD 2C 61.1 % LV Ejection Fraction 2C AL 60.5 % LA Diameter 4.5 cm LA Sys Volume AL 99.4 cm cubed LA Sys Volume Index AL 51.2 cm cubed/m squared Aorta at Sinotubular Diameter 3.5 cm M-MODE LV Ejection Fraction MM Teich 64.4 % IVS Diastolic Thickness MM 1.7 cm 0.6 - 1.0 / 0.6 - 0.9 cm IVS Systolic Thickness MM 2.1 cm LVPW Diastolic Thickness MM 1.8 cm 0.6 - 1.0 / 0.6 - 0.9 cm LVPW Systolic Thickness MM 2.5 cm LA Ao Ratio MM 1.7 AV Cusp Separation MM 2.4 cm DOPPLER AV Peak Velocity 180.0 cm/s LVOT Peak Velocity 96.0 cm/s AV Area Cont Eq vti 1.9 cm squared AV Area Cont Eq pk 1.7 cm squared MV Peak Velocity 129.0 cm/s MV Area PHT 2.9 cm squared Mitral E to A Ratio 0.8 TV Peak Velocity 172.0 cm/s TR Peak Velocity 195.0 cm/s TR Peak Gradient 15.2 mmHg TV Peak E Velocity 87.0 cm/s PV Peak Velocity 150.0 cm/s FINDINGS Left Ventricle Left ventricular is normal in size. LV systolic function is normal with EF of 55 to 60%. No regional wall motion abnormalities are seen. Grade 1 diastolic dysfunction. Right Ventricle Normal in size and function Right Atrium Normal in size Left Atrium Dilated Mitral Valve Mild mitral annular calcification. Mild mitral regurgitation. Aortic Valve Structurally normal aortic valve. No significant stenosis or regurgitation. Tricuspid Valve Mild tricuspid regurgitation. Pulmonary artery systolic pressure is normal. Pulmonic Valve Not well visualized Pericardium Small sized pericardial effusion Aorta Normal in size IVC Not well visualized. CONCLUSIONS LV systolic function is normal with EF 55 to 60%. Grade 1 diastolic dysfunction Left atrial dilation. Mild mitral regurgitation. Mild tricuspid regurgitation. Small size pericardial effusion. No comparison studies are available. Jarek Olivares MD (Electronically Signed) Final Date: 08 February 2024 08:02 S
[2024-02-07] MEDS: pantoprazole DR 40 mg Tablet PO (08:15)
[2024-02-07] MEDS: clopidogrel 75 mg Tablet PO (08:17)
--- NOTE | 2024-02-07 10:14 | W.PM.EVENTAC ---
Event Note Event Note: History and physical reviewed. Patient admitted with pulmonary embolism, UTI. Continue Rocephin, Lovenox. Patient had previous NE and received stent so we will also continue Plavix cautiously. This occurred in March 25 earlier this year. Will not continue aspirin as Lovenox initiated. Echocardiogram and venous duplex pending. Secondary to significant weakness obtain PT consult.
[2024-02-07] MEDS: atorvastatin 40 mg Tablet PO (18:09)
--- NOTE | 2024-02-07 20:32 | PC.NURSE ---
Addendum entered by Starr Mcgovern RN 02/07/24 20:36: Left facial droop not present when patient has neutral facial expression, however when asking patient to smile, it is noted that the left side is asymmetrical from the right side. Original Note: Patient's orientation status: Patient states that she is in [facility]. Patient is able to tell me the year, but says that the month is January.
--- NOTE | 2024-02-07 20:52 | PC.NURSE ---
Patient's orientation status: Patient states that she is in [facility]. Patient is able to tell me the year, but says that the month is January.
[2024-02-08 04:00] VITALS: BP 125/71; PULSE 71; RESP 18; TEMP 36.8; O2SAT 96
[2024-02-08] MEDS: cefTRIAXone 1,000 mg SDV 1000 MG IVP (05:31)
[2024-02-08] MEDS: enoxaparin 80 mg/0.8 mL Syringe SUBCUT (05:31)
[2024-02-08 06:00] VITALS: PULSE 71
[2024-02-08 06:32] LABS: Basophils # 0.1 10^3/uL (0.0-0.1); Basophils % 0.8 %; Eosinophils # 0.1 10^3/uL (0.0-0.8); Eosinophils % 2.2 %; Hematocrit 31.3 % (36-47); Lymphocytes # 1.4 10^3/uL (0.8-4.8); Lymphocytes % 22.5 %; Mean Corpuscular HGB Conc 31.9 g/dL (30-55); Mean Corpuscular Hemoglobin 28.8 pg (27-33); Mean Corpuscular Volume 90.2 fl (85-98); Mean Platelet Volume 9.5 fL (7.4-10.4); Monocytes # 0.7 10^3/uL (0.2-0.9); Monocytes % 11.2 %; Neutrophils # 3.79 10^3/uL (1.8-7.7); Neutrophils % 63.1 %; Nucleated Red Blood Cells % 0 %; Platelet Count 237 10^3/cmm (157-399); Red Blood Count 3.47 10^6/uL (3.85-5.65); Red Cell Distribution Width 15.5 % (12.1-15.1)
[2024-02-08 06:51] LABS: Creatine Phosphokinase 124 U/L (26-192)
[2024-02-08 07:14] LABS: Alanine Aminotransferase 21 U/L (0-33); Albumin Level 3.2 g/dL (3.5-5.2); Alkaline Phosphatase 74 U/L (35-105); Aspartate Amino Transferase 25 U/L (0-32); Blood Urea Nitrogen 24 mg/dL (8-23); Calcium 8.6 mg/dL (8.5-10.5); Carbon Dioxide 20 mmol/L (22-29); Chloride 109 mmol/L (98-107); Creatinine Clr Calc Pharmacy 44.2841; Glucose 85 mg/dL (65-115); Osmolality Calculated 293 mOsm/kg (285-295); Sodium 140 mmol/L (136-145); Total Bilirubin 0.3 mg/dL (0.15-1.2); Total Protein 5.2 g/dL (6.6-8.7)
[2024-02-08 08:33] VITALS: BP 123/78; PULSE 68; RESP 17; TEMP 36.8; O2SAT 96
--- NOTE | 2024-02-08 09:00 | P.DS_ITS ---
Discharge Providers Date of Admission: 02/07/24 02:45 Date of Discharge: February 08, 2024 Attending Provider at Admission: Talya Alcala MD Attending Provider at Discharge: Florencio Akins MD Primary Care Provider: Bola Cervantes MD Diagnoses at Discharge Discharge Diagnosis (1) Pulmonary embolism: Status: Acute (2) Acute UTI: Status: Acute Reason for Visit Reason for Visit: Fall wednesday slur speech not feeling right Hospital Course Hospital Course Destiny is a 78-year-old white female with history of some cognitive difficulties, past history of myocardial infarction who presented with acute encephalopathy, and UTI. CT head showed no acute changes. CTA of the chest demonstrated a filling defect with concern of PE. She was placed on full dose Lovenox, and ceftriaxone for UTI. During her hospital course she improved significantly, getting back to her baseline mental status. It was thought she could benefit from home health, after staying with her family for short while. She was stable to be discharged on February 07. She will take 7 days of cefdinir. She will discharge on Eliquis 10 mg twice daily for a week and then 5 mg twice daily. Plavix will be discontinued and she will continue aspirin 81 mg daily. Patient, her family were given opportunity ask questions and agreed with the plan. Risks and benefits of Eliquis were discussed. Physical Exam Narrative: General Exam no distress, conversive, alert Neck is supple Cardiovascular regular rate and rhythm Lungs clear Abdomen soft Extremities no cyanosis clubbing or edema Discharge Data Studies Completed and Pending Completed Studies During Hospitalization Category Date Time Status CT cervical spin wo con* [id number] Stat Cat Scan 02/07/24 00:[address] chest abdomen pelvis [CT chest abdpel w/*[id number] Cat Scan 02/07/24 00:00 Completed ] Stat CT head wo con* [id number] Stat Cat Scan 02/07/24 00:00 [place] [id number] Routine Ultrasound 02/07/24 06:48 Completed CV. echo complete* [id number] Routine Ultrasound 02/07/24 07:34 Completed Pending at discharge Category Date Time Status Blood Culture Stat Lab 02/07/24 02:35 Results Urine Culture Stat Lab 02/08/24 08:16 Uncollected Radiology Impressions Cervical Spine CT 02/07/24 00:00 IMPRESSION: No acute fracture or traumatic malalignment of the cervical spine. Chest/Abdomen/Pelvis CT 02/07/24 00:00 IMPRESSION: 1. No evidence of acute posttraumatic changes within the thorax. 2. There is a filling defect within a segmental branch of the left upper lobe. This may reflect a nonocclusive thrombus. Correlate with D-dimer. There is also dilatation of the right ventricle compared to the left however it was not felt that this is right ventricular strain due to pulmonary embolism given the relatively low degree of pulmonary embolic burden. 3. Moderately sized paraesophageal hernia. IMPRESSION: 1. No obvious posttraumatic changes to the abdomen or pelvis. 2. Limited evaluation of the urinary bladder due to underdistention. Correlate urinalysis to exclude cystitis. Head CT 02/07/24 00:00 IMPRESSION: No acute intracranial process. Senescent changes. Laboratory Results WBC 6.00 10^3/uL (3.29-11.43) 02/08/24 05:44 RBC 3.47 10^6/uL (3.85-5.65) L 02/08/24 05:44 Hgb 10.00 g/dL (11.27-16.99) L 02/08/24 05:44 Hct 31.3 % (36-47) L 02/08/24 05:44 MCV 90.2 fl (85-98) 02/08/24 05:44 MCH 28.8 pg (27-33) 02/08/24 05:44 MCHC 31.9 g/dL (30-55) 02/08/24 05:44 RDW 15.5 % (12.1-15.1) H 02/08/24 05:44 Plt Count 237 10^3/cmm (157-399) 02/08/24 05:44 MPV 9.5 fL (7.4-10.4) 02/08/24 05:44 Neut % (Auto) 63.1 % 02/08/24 05:44 Lymph % (Auto) 22.5 % 02/08/24 05:44 [place] % (Auto) 11.2 % 02/08/24 05:44 Eos % (Auto) 2.2 % 02/08/24 05:44 Baso % (Auto) 0.8 % 02/08/24 05:44 Neut # (Auto) 3.79 10^3/uL (1.8-7.7) 02/08/24 05:44 Lymph # (Auto) 1.4 10^3/uL (0.8-4.8) 02/08/24 05:44 [place] # (Auto) 0.7 10^3/uL (0.2-0.9) 02/08/24 05:44 Eos # (Auto) 0.1 10^3/uL (0.0-0.8) 02/08/24 05:44 Baso # (Auto) 0.1 10^3/uL (0.0-0.1) 02/08/24 05:44 Nucleated RBC % (auto) 0 % 02/08/24 05:44 Nucleated RBCs # 0.0 /100WBC 02/08/24 05:44 PT 15.10 SECONDS (12.1-14.9) H 02/06/24 23:46 INR 1.15 (0.8-1.2) 02/06/24 23:46 APTT 25.2 SECONDS (23.9-36.7) 02/06/24 23:46 Sodium 140 mmol/L (136-145) 02/08/24 05:44 Potassium 4.0 mmol/L (3.5-5.1) 02/08/24 05:44 Chloride 109 mmol/L (98-107) H 02/08/24 05:44 Carbon Dioxide 20 mmol/L (22-29) L 02/08/24 05:44 Anion Gap 15.0 (5-19) 02/08/24 05:44 BUN 24 mg/dL (8-23) H 02/08/24 05:44 Creatinine 1.2 mg/dL (0.5-0.9) H 02/08/24 05:44 GFR Calculation Not Reportable 02/08/24 05:44 Glucose 85 mg/dL (65-115) 02/08/24 05:44 Calculated Osmolality 293 mOsm/kg (285-295) 02/08/24 05:44 Lactic Acid 1.4 mmol/L (0.5-2.2) 02/06/24 23:46 Calcium 8.6 mg/dL (8.5-10.5) 02/08/24 05:44 Total Bilirubin 0.3 mg/dL (0.15-1.2) 02/08/24 05:44 AST 25 U/L (0-32) 02/08/24 05:44 ALT 21 U/L (0-33) 02/08/24 05:44 Alkaline Phosphatase 74 U/L (35-105) 02/08/24 05:44 Creatine Kinase 124 U/L (26-192) 02/08/24 05:44 Troponin T Baseline 22 ng/L (0-10) H 02/06/24 23:46 Troponin T 120 Minute 20.40 ng/L (0-10) H 02/07/24 01:46 Delta Troponin T -1.60 ABS# (0-10) L 02/07/24 01:46 Troponin T Hi Sens 6Hr 25.42 ng/L (0-10) H 02/07/24 05:44 Troponin T Hi Sens 6Hr Delta 3.42 ng/L (0-12) 02/07/24 05:44 C-Reactive Protein 18.7 mg/L (0.0-4.9) H 02/06/24 23:46 Total Protein 5.2 g/dL (6.6-8.7) L 02/08/24 05:44 Albumin 3.2 g/dL (3.5-5.2) L 02/08/24 05:44 Globulin 2.0 g/dL (1.3-4.6) 02/08/24 05:44 Urine Color Yellow (Yellow) 02/07/24 01:23 Urine Appearance Clear (CLEAR) 02/07/24 01:23 Urine pH 5.5 (5-7) 02/07/24 01:23 Ur Specific [place] 1.046 (1.005-1.030) H 02/07/24 01:23 Urine Protein 1+ (Negative) A 02/07/24 01:23 Urine Glucose (UA) Negative (Normal) 02/07/24 01:23 Urine Ketones 1+ (Negative) H 02/07/24 01:23 Urine Blood 3+ (Negative) A 02/07/24 01:23 Urine Nitrate Negative (Negative) 02/07/24 01:23 Urine Bilirubin Negative (Negative) 02/07/24 01:23 Urine Urobilinogen 1.0 mg/dL (Negative) 02/07/24 01:23 Ur Leukocyte Esterase 3+ (Negative) A 02/07/24 01:23 Urine RBC 21-50 /hpf (0-2) H 02/07/24 01:23 Urine WBC Too numerous to cnt /hpf (0-5) H 02/07/24 01:23 Ur Squamous Epith Cells 10-15 /hpf (0-5) H 02/07/24 01:23 Amorphous Sediment Not Reportable 02/07/24 01:23 Urine Bacteria None seen /hpf (NONE) 02/07/24 01:23 Hyaline Casts 30.18 /lpf 02/07/24 01:23 Vitals Last Vital Signs Temp 98.2 F 02/08/24 08:33 Pulse 68 02/08/24 08:33 Resp 17 02/08/24 08:33 BP 123/78 02/08/24 08:33 Pulse Ox 96 02/08/24 08:33 O2 Del Method Room Air 02/08/24 08:33 Discharge Plan Discharge Patient Disposition: Home Condition: Stable Prescriptions: Mike Cam DVT-PE Treat 30D Start 5 mg (74 tabs) tablets,dose pack See Rx Instructions .ROUTE .COMPLEX Qty: 74 0RF Rx Instructions: orally per package directions cefdinir 300 mg capsule 300 mg PO BID 7 Days Qty: 14 0RF pantoprazole 40 mg Tablet,Delayed Release (Dr/Ec) 40 mg PO DAILY Qty: 30 0RF Continued aspirin 81 mg tablet,delayed release (DR/EC) 81 mg PO DAILY PRN (Reason: Pain) levothyroxine 25 mcg tablet 25 mcg PO DAILY primidone 50 mg tablet 50 mg PO DAILY topiramate [Topamax] 200 mg tablet 200 mg PO DAILY nitroglycerin 0.4 mg Tablet, Sublingual 0.4 mg sublingual Q5M PRN (Reason: Chest Pain) Qty: 25 2RF atorvastatin 40 mg tablet 40 mg PO QPM Discontinued clopidogrel [Plavix] 75 mg tablet 75 mg PO DAILY Discharge Orders: Discharge Order (Routine); Ordered 02/08/24 Ordered By: Florencio Akins Referrals: Bola Cervantes MD [Primary Care Provider] - 4-7 days (CBC on follow-up) Discharge Diet: Usual diet Discharge Activity: Increase activity as tolerated Patient Instructions: Opioid Safety Activity Restrictions/Additional Instructions: Take all medicine as prescribed Monitor for any bleeding CBC on follow-up with primary care provider Eliquis will be 10 mg twice daily for 1 week then 5 mg twice daily Do not take Plavix, may take aspirin 81 mg daily Return for any concerns Finish 7 days of antibiotic Encourage fluids Discharge Attestations Time Spent in Discharge Care*: greater than 30 min Quality Metrics Clinical Quality Measures [ Venous Thromboembolism { Contraindication to Overlap Therapy: Overlap treatment not indicated; VTE Discharge Education: Education about anticoagulant therapy/Care Notes given; Deep Vein Thrombosis/Pulmonary Embolism Present on Admission: No; Contraindication to Pharm VTE Prophylaxis: None; Pharmacological prophylaxis given;}] Coding Level of Care Code 35433 Total time (in minutes) for Discharge: 36 Diagnoses Pulmonary embolism I26.99 Acute UTI N39.0
[2024-02-08] MEDS: topiramate 100 mg Tablet 200 MG PO (09:01)
[2024-02-08] MEDS: clopidogrel 75 mg Tablet PO (09:02)
[2024-02-08] MEDS: levothyroxine 25 mcg Tablet PO (09:02)
[2024-02-08] MEDS: pantoprazole DR 40 mg Tablet PO (09:02)
[2024-02-08] MEDS: primidone 50 mg Tablet PO (09:02)
--- NOTE | 2024-02-08 10:25 | PC.CHAP ---
Pastoral Care Encounter/Spiritual Assessment Type of Contact [] Declined seismograph observer visit [] Patient/Family/Request visit [] Outpatient visit [] Follow-up visit [] Physician referral [] Code/Alert [] Routine visit [] Staff referral [] Actively dying [] Patient sleeping [] Family support [] [] Out of room [] Palliative care [] [x] Receiving care in room [] Pre-surgical visit [] Trauma [] Long length of stay [] ICU visit [] Other: Relational/Emotional Strength [] Patient feels connected with others/family/visitors/staff [] Distress [] Loneliness/isolation [] Abandonment Spirituality of Patient [] Person of Anisa [] Attends Buddhist of their Anisa [] Believes in Prayer [] Reads Bible or Zoroastrian materials [] There are Spiritual issues to be addressed Electronics Inspector Interventions [] Prayer [] Active listening [] Non-anxious presence [] Spiritual/emotional support [] Crisis/trauma care [] Spiritual counseling [] Bereavement support [] Provided bereavement packet [] Provided Bible/devotional materials [] Provided toy/stuffed animal, coloring book to patient or family member [] Provided Communion [] Anointing/[place] [] Salvation [] Completed spiritual assessment [] Other: Impact on Illness or Injury [] Angry [] Fearful [] Anxious [] Often cries [] Exhaustion [] Unable to work [] Unable to attend zoroastrianism [] Unable to walk/stand [] Unable to read [] Unable to drive [] Unable to eat/drink [] Unable to sleep [] Unable to be with family [] Patient intubated [] Other: Summary Time spent with patient
[2024-02-08 12:11] VITALS: BP 153/81; PULSE 79; RESP 18; TEMP 36.3; O2SAT 99
[2024-02-08 12:19] VITALS: BP 153/81; PULSE 79; RESP 18; TEMP 36.3; O2SAT 99
== END 2024-02-08 11:45 | disposition home or self-care (01) | DRG 689 ==
LOC: ER 02-07 02:41 → MEDSURG 02-07 02:46
PROVIDERS: Admitting Provider Student in an Organized Health Care Education/Training Program; Emergency Provider Emergency Medicine; PCP Internal Medicine; Visit Provider Internal Medicine
DX: N39.0 Urinary tract infection, site not specified (principal); I26.99 Other pulmonary embolism without acute cor pulmonale; G93.40 Encephalopathy, unspecified; G40.909 Epilepsy, unspecified, not intractable, without status epilepticus; I25.2 Old myocardial infarction; Z79.82 Long term (current) use of aspirin; Z79.02 Long term (current) use of antithrombotics/antiplatelets
CPT/HCPCS: 36415; 70450; 71260; 72125; 74177; 80053; 81001; 82550; 83605; 84484; 85025; 85610; 85730; 86140; 87040; 93005; 93306; 93970; 96372; 96374; 97116; 97161; 97530; 99285; J0696; J1650; J7030

== ENCOUNTER 2024-03-11 14:33 | Emergency (ER) | payer MEDICARE, OTHER, SELFPAY ==
[2024-03-11 15:02] VITALS: BP 137/83; PULSE 82; RESP 18; TEMP 36.6; O2SAT 100; BMI 29.0
--- NOTE | 2024-03-11 15:15 | CTR_ITS ---
PROCEDURE INFORMATION: Exam: CT Head Without Contrast Exam date and time: 03/11/2024 3:26 PM Age: 78 years old Clinical indication: Injury or trauma; Fall; Blunt trauma (contusions or hematomas); Additional info: Anticoagulated/trauma/fall TECHNIQUE: Imaging protocol: Computed tomography of the head without contrast. Radiation optimization: All CT scans at this facility use at least one of these dose optimization techniques: automated exposure control; mA and/or kV adjustment per patient size (includes targeted exams where dose is matched to clinical indication); or iterative reconstruction. COMPARISON: CT head wo con* [id number] 02/07/2024 12:08 AM RADIATION DOSE METRICS: Total DLP (mGy-cm): 1175 FINDINGS: Brain: No hemorrhage. No edema. Moderate diffuse cerebral atrophy and mild sequela of chronic small vessel ischemic disease. No mass effect. Cerebral ventricles: No ventriculomegaly. Paranasal sinuses: Visualized sinuses are unremarkable. No fluid levels. Mastoid air cells: Visualized mastoid air cells are well aerated. Bones: Unremarkable. No acute fracture. Soft tissues: Unremarkable. CT/CT head wo con* [id number] IMPRESSION: No acute intracranial abnormality.
--- NOTE | 2024-03-11 15:15 | CTR_ITS ---
PROCEDURE INFORMATION: Exam: CT Cervical Spine Without Contrast Exam date and time: 03/11/2024 3:26 PM Age: 78 years old Clinical indication: Injury or trauma; Fall; Blunt trauma; Additional info: Anticoagulated/trauma/fall TECHNIQUE: Imaging protocol: Computed tomography of the cervical spine without contrast. Radiation optimization: All CT scans at this facility use at least one of these dose optimization techniques: automated exposure control; mA and/or kV adjustment per patient size (includes targeted exams where dose is matched to clinical indication); or iterative reconstruction. COMPARISON: CT cervical spin wo con* [id number] 02/07/2024 12:11 AM RADIATION DOSE METRICS: Total DLP (mGy-cm): 966.7 FINDINGS: Bones: No acute fracture. Normal alignment. No significant disc bulge or herniation. No severe spinal canal stenosis. No significant neural foraminal narrowing. Lungs: Lung apices are normal. Soft tissues: Unremarkable. CT/CT cervical spin wo con* [id number] IMPRESSION: No acute findings.
--- NOTE | 2024-03-11 15:16 | CTR_ITS ---
PROCEDURE INFORMATION: Exam: CT Maxillofacial Without Contrast Exam date and time: 03/11/2024 3:26 PM Age: 78 years old Clinical indication: Injury or trauma; Fall; Blunt trauma (contusions or hematomas); Head/scalp and jaw; Without loss of consciousness; Not specified; Additional info: Trauma/fall TECHNIQUE: Imaging protocol: Computed tomography of the face without contrast. Radiation optimization: All CT scans at this facility use at least one of these dose optimization techniques: automated exposure control; mA and/or kV adjustment per patient size (includes targeted exams where dose is matched to clinical indication); or iterative reconstruction. COMPARISON: CT head wo con* [id number] 03/11/2024 3:26 PM RADIATION DOSE METRICS: Total DLP (mGy-cm): 509.8 FINDINGS: Paranasal sinuses: No air-fluid levels. Orbital cavities: Orbits are normal. Globes are unremarkable. Bones: No acute fracture. Soft tissues: Unremarkable. CT/CT facial bones wo con* [id number] IMPRESSION: No acute findings.
--- NOTE | 2024-03-11 15:43 | W.ED.FALL ---
HPI - Fall General: Chief Complaint: Fall Stated Complaint: swollen chin Time Seen by Provider: 03/11/24 15:32 History of Present Illness: 78-year-old female with a history of hyperlipidemia, hypothyroidism, Coronary artery disease, seizure disorder and recent diagnosis of pulmonary embolism who has been on chronic anticoagulation with Eliquis who presents emergency room after having had a fall. Patient has some dementia and does not remember the fall. Apparently it happened a few days ago. Today she woke up complaining of a headache posteriorly. She also has a bruise on her chin. Because she is on anticoagulation family brought her to the emergency room for evaluation. Currently she is at her baseline. Pleasantly demented. She is oriented to person and place. No focal motor deficits. No fevers. No chest pain. No cough. No abdominal pain. No nausea or vomiting. Related Data Home Medications Medication Instructions Recorded Confirmed levothyroxine 25 mcg tablet 25 mcg PO DAILY 03/24/23 02/07/24 primidone 50 mg tablet 50 mg PO DAILY 03/24/23 02/07/24 topiramate 200 mg tablet (Topamax) 200 mg PO DAILY 03/24/23 02/07/24 aspirin 81 mg tablet,delayed 81 mg PO DAILY PRN Pain 09/02/23 02/07/24 release atorvastatin 40 mg tablet 40 mg PO QPM 02/07/24 02/07/24 Previous Rx's Medication Instructions Recorded nitroglycerin 0.4 mg sublingual 0.4 mg sublingual Q5M PRN Chest 03/25/23 tablet Pain #25 tabs apixaban 5 mg (74 tabs) tablets in See Rx Instructions PO .COMPLEX 03/04/24 a dose pack (Eliquis DVT-PE Treat #74 ea 30D Start) pantoprazole 40 mg tablet,delayed 40 mg PO DAILY #30 tabs 03/04/24 release Allergies Allergy/AdvReac Type Severity Reaction Status Date / Time ampicillin Allergy Unknown Verified 03/11/24 15:08 Penicillins Allergy Unknown Verified 03/11/24 15:08 Review of Systems Narrative: Constitutional symptoms: Negative except as documented in HPI. Skin symptoms: Negative except as documented in HPI. Eye symptoms: Negative except as documented in HPI. ENMT symptoms: Negative except as documented in HPI. Respiratory symptoms: Negative except as documented in HPI. Cardiovascular symptoms: Negative except as documented in HPI. Gastrointestinal symptoms: Negative except as documented in HPI. Genitourinary symptoms: Negative except as documented in HPI. Musculoskeletal symptoms: Negative except as documented in HPI. Neurologic symptoms: Negative except as documented in HPI. Psychiatric symptoms: Negative except as documented in HPI. Endocrine symptoms: Negative except as documented in HPI. COUNT INCLUDES THE [facility] ED PFSH: Medical History Coronary artery disease Seizure disorder Family History Mother Diabetes Father Heart disease Social History Smoking and tobacco/nicotine status: never used tobacco/nicotine Alcohol intake: never Substance/Drug Use: never Adopted: No Marital status: Number of children: 2 service: No Physical Exam Narrative: EXAM NARRATIVE: General: Alert, no acute distress. Skin: Warm, dry. Head: Normocephalic, some bruising on the chin that appears old. Neck: Supple, trachea midline. Eye: Extraocular movements are intact. Ears, nose, mouth and throat: mucosa moist. Cardiovascular: Regular, Normal peripheral perfusion. Respiratory: Lungs are clear to auscultation, respirations are non-labored, breath sounds are equal, Symmetrical chest wall expansion. Gastrointestinal: Soft, Nontender, Non distended Musculoskeletal: Normal ROM, no deformity. Neurological: Alert and oriented, No focal neurological deficit observed. Psychiatric: Cooperative, appropriate mood & affect. Course Vital Signs: Vital signs: Vital Signs Temperature 97.8 F 03/11/24 15:02 Pulse Rate 76 03/11/24 16:35 Respiratory Rate 15 03/11/24 16:35 Blood Pressure 143/57 03/11/24 16:11 Pulse Oximetry 99 03/11/24 16:35 Oxygen Delivery Me thod Room Air 03/11/24 15:02 MDM - Fall Medical Decision Making CT head: No acute intracranial process. no intracranial hemorrhage, no evidence of infarct. no evidence of acute fracture.This was reviewed and interpreted by myself the ER physician. CT of the facial bones without contrast: No obvious fractures or dislocations. This was reviewed and interpreted by myself the emergency room physician. I also reviewed the radiology report. CT of the cervical spine: No fracture. Good alignment. No step-offs. This was reviewed and interpreted by myself the emergency room physician. I also reviewed the radiologist report. Assessment and plan: Fall Head injury Chronic anticoagulation Pulmonary embolism - Discharged home - Discussed plan with patient. Answered any questions. - Evaluation and treatment of this problem were appropriate in the emergency setting. Lab Data Radiology Impressions Cervical Spine CT 03/11/24 15:15 IMPRESSION: No acute findings. Head CT 03/11/24 15:15 IMPRESSION: No acute intracranial abnormality. Face CT 03/11/24 15:16 IMPRESSION: No acute findings. All radiology interpretation(s) finalized by discharge Discharge Plan Discharge Patient Disposition: Home Clinical Impression: Head injury, Memory loss, Pulmonary embolism, Chronic anticoagulation Condition: Stable Prescriptions: No Action aspirin 81 mg tablet,delayed release (DR/EC) 81 mg PO DAILY PRN (Reason: Pain) Eliquis DVT-PE Treat 30D Start 5 mg (74 tabs) tablets,dose pack See Rx Instructions .ROUTE .COMPLEX Qty: 74 0RF Rx Instructions: orally per package directions pantoprazole 40 mg tablet,delayed release (DR/EC) 40 mg PO DAILY Qty: 30 0RF levothyroxine 25 mcg tablet 25 mcg PO DAILY primidone 50 mg tablet 50 mg PO DAILY topiramate [Topamax] 200 mg tablet 200 mg PO DAILY nitroglycerin 0.4 mg Tablet, Sublingual 0.4 mg sublingual Q5M PRN (Reason: Chest Pain) Qty: 25 2RF atorvastatin 40 mg tablet 40 mg PO QPM Discharge Orders: Discharge ED (Routine); Ordered 03/11/24 Ordered By: Kellie Washington Referrals: Bola Cervantes MD [Primary Care Provider] - Discharge Diet: Usual diet Discharge Activity: Increase activity as tolerated Patient Instructions: Fall Prevention for Older Adults (ED), Opioid Safety, Pain Management Activity Restrictions/Additional Instructions: Thank you for choosing [facility] for your healthcare needs today. Please realize this is an emergency room and that we are providing you with a medical screening exam and this may not be complete and all inclusive of all the testing and or work up that you may need to determine your ailment or severity of your illness. You have been screened and evaluated and felt safe for discharge. Health conditions do change or evolve sometimes and as such it is important that you follow up with your Primary Doctor to be re checked, 3-5 days is a general good time frame for follow up. You are always welcome to return to the ED for re assessment if your symptoms are worsening or you have new concerns Coding Level of Care Code ED Bag Printer for Adrián Turk
[2024-03-11 15:59] VITALS: BP 153/54; PULSE 69; RESP 16; O2SAT 98
[2024-03-11 16:11] VITALS: BP 143/57; PULSE 68; RESP 16; O2SAT 98
[2024-03-11 16:35] VITALS: PULSE 76; RESP 15; O2SAT 99
[2024-03-11 17:18] VITALS: BP 149/62; PULSE 75; O2SAT 98
== END 2024-03-11 17:18 | disposition home or self-care (01) ==
PROVIDERS: Emergency Provider Emergency Medicine; PCP Internal Medicine
DX: S09.90XA Unspecified injury of head, initial encounter (principal); R41.3 Other amnesia; I26.99 Other pulmonary embolism without acute cor pulmonale; Z79.82 Long term (current) use of aspirin; Z79.01 Long term (current) use of anticoagulants; I25.10 Atherosclerotic heart disease of native coronary artery without angina pectoris; W19.XXXA Unspecified fall, initial encounter; E78.5 Hyperlipidemia, unspecified
CPT/HCPCS: 70450; 70486; 72125; 99284

== ENCOUNTER 2024-03-19 23:21 | Observation (INO) | payer MEDICARE, OTHER, SELFPAY ==
[2024-03-19 23:22] VITALS: BP 145/66; PULSE 85; RESP 16; TEMP 36.7; O2SAT 96; BMI 29.8
--- NOTE | 2024-03-19 23:31 | ECG_ITS ---
[employer] Test Date: 2024-03-19 Pat Name: Destiny Hernandez Department: Room: Gender: Female Complex Director: : [id number] Requested By: Car Blakely Order Number: [id number] MD: Fady Thompson M.D. Measurements Intervals [place] Rate: 90 P: 27 FL: 230 QRS: 6 QRSD: 110 T: 11 QT: 384 QTc: 470 Interpretive Statements SINUS RHYTHM WITH FIRST DEGREE AV BLOCK POSSIBLE LEFT ATRIAL ENLARGEMENT [-0.1mV P-WAVE IN V1/V2] INCOMPLETE RIGHT BUNDLE BRANCH BLOCK [90+ ms QRS DURATION, TERMINAL R IN V1/V2, 40+ ms S IN I/aVL/V4/V5/V6] POSSIBLE ANTERIOR MYOCARDIAL INFARCTION , OF INDETERMINATE AGE [30 ms Q WAVE IN V3/V4, OR R < 0.2 mV IN V4] Compared to ECG 02/07/2024 09:12:13 First degree AV block now present Myocardial infarct finding now present ST (T wave) deviation no longer present Electronically Signed On 03-21-2024 23:50:06 [email or web address] ADMINISTRATOR by Fady Thompson M.D. [email or web address]
--- NOTE | 2024-03-19 23:32 | CTR_ITS ---
PROCEDURE INFORMATION: Exam: CT Head Without Contrast Exam date and time: 03/19/2024 11:56 PM Age: 78 years old Clinical indication: Injury or trauma; Blunt trauma (contusions or hematomas); Patient HX: EMS arrival for fall from home. Patient found down on floor. Patient unsure if she struck head. Anticoagulated. ; Additional info: Fall, blood thinners TECHNIQUE: Imaging protocol: Computed tomography of the head without contrast. Radiation optimization: All CT scans at this facility use at least one of these dose optimization techniques: automated exposure control; mA and/or kV adjustment per patient size (includes targeted exams where dose is matched to clinical indication); or iterative reconstruction. COMPARISON: CT head wo con* [id number] 03/11/2024 3:26 PM RADIATION DOSE METRICS: Total DLP (mGy-cm): 987.62 FINDINGS: Brain: Mild nonspecific white matter low attenuation which may be related to microvascular ischemic changes. No acute confluent lobar ischemic infarct. No acute intracranial hemorrhage. Cerebral ventricles: The ventricles and sulci are prominent in size compatible with mild atrophy. Paranasal sinuses: Mucoperiosteal thickening is seen involving the bilateral ethmoid air cells. Mastoid air cells: Visualized mastoid air cells are well aerated. Bones: No acute calvarial fracture. Soft tissues: Visualized soft tissues are unremarkable. CT/CT head wo con* [id number] IMPRESSION: No acute intracranial abnormality. If symptoms persist, consider further evaluation with MRI, if there are no contraindications to obtaining a MRI scan.
[2024-03-20] VITALS (25 sets, daily range): BP systolic 103–158; BP diastolic 48–90; PULSE 70–95; RESP 16–22; O2SAT 91–98
[2024-03-20] LABS: Basophils # 0.1 10^3/uL (0.0-0.1); Basophils % 0.7 %; Eosinophils % 0.1 %; Lymphocytes # 0.7 10^3/uL (0.8-4.8); Lymphocytes % 8.9 %; Mean Corpuscular HGB Conc 30.5 g/dL (30-55); Mean Corpuscular Hemoglobin 27.5 pg (27-33); Mean Corpuscular Volume 90.1 fl (85-98); Mean Platelet Volume 9.2 fL (7.4-10.4); Monocytes # 0.5 10^3/uL (0.2-0.9); Neutrophils # 6.45 10^3/uL (1.8-7.7); Neutrophils % 84.2 %; Nucleated Red Blood Cells % 0 %; Platelet Count 266 10^3/cmm (157-399); Red Blood Count 4.44 10^6/uL (3.85-5.65); Red Cell Distribution Width 14.6 % (12.1-15.1); White Blood Count 7.66 10^3/uL (3.29-11.43)
[2024-03-20 00:10] LABS: INR 1.28 (0.8-1.2)
[2024-03-20 00:11] LABS: Partial Thromboplastin Time 29.2 SECONDS (23.9-36.7)
[2024-03-20 00:17] LABS: Alanine Aminotransferase 33 U/L (0-33); Albumin Level 3.7 g/dL (3.5-5.2); Alkaline Phosphatase 116 U/L (35-105); Blood Urea Nitrogen 20 mg/dL (8-23); Calcium 10.1 mg/dL (8.5-10.5); Carbon Dioxide 19 mmol/L (22-29); Chloride 103 mmol/L (98-107); Creatinine Clr Calc Pharmacy 39.5595; Globulin 3.2 g/dL (1.3-4.6); Glucose 101 mg/dL (65-115); Osmolality Calculated 291 mOsm/kg (285-295); Sodium 139 mmol/L (136-145); Total Bilirubin 0.4 mg/dL (0.15-1.2); Total Protein 6.9 g/dL (6.6-8.7)
[2024-03-20 00:21] LABS: Anion Gap 21.4 (5-19); Aspartate Amino Transferase 79 U/L (0-32); Potassium 4.4 mmol/L (3.5-5.1)
--- NOTE | 2024-03-20 00:25 | W.ED.FALL ---
Documented by User: NITESH Cox 03/20/24 01:29 HPI - Fall General: Chief Complaint: ER Hold Stated Complaint: Fall Time Seen by Provider: 03/19/24 23:28 Source: patient Mode of arrival: ambulatory Limitations: no limitations History of Present Illness: 78yo female presents via EMS for evaluation following a fall. Per EMS, patient was on the floor for 2 hours prior to being found. Patient possibly hit her head and family reported some confusion. Family also reported swelling to the right leg that is warm to touch as well. Patient's states that she did fall, but does not know if it was related to a trip, weakness, or dizziness. Patient denies any pain at this time. Patient is unsure if she is still using blood thinners. She denies any other concerns at this time Associated symptoms-after fall: Denies abdominal pain, chest pain or headache(s) Related Data Home Medications Medication Instructions Recorded Confirmed levothyroxine 25 mcg tablet 25 mcg PO DAILY 03/24/23 02/07/24 primidone 50 mg tablet 50 mg PO DAILY 03/24/23 02/07/24 topiramate 200 mg tablet (Topamax) 200 mg PO DAILY 03/24/23 02/07/24 aspirin 81 mg tablet,delayed 81 mg PO DAILY PRN Pain 09/02/23 02/07/24 release atorvastatin 40 mg tablet 40 mg PO QPM 02/07/24 02/07/24 Previous Rx's Medication Instructions Recorded nitroglycerin 0.4 mg sublingual 0.4 mg sublingual Q5M PRN Chest 03/25/23 tablet Pain #25 tabs apixaban 5 mg (74 tabs) tablets in See Rx Instructions PO .COMPLEX 03/04/24 a dose pack (Eliquis DVT-PE Treat #74 ea 30D Start) pantoprazole 40 mg tablet,delayed 40 mg PO DAILY #30 tabs 03/04/24 release cefpodoxime 200 mg tablet 200 mg PO BID #20 tabs 03/20/24 Allergies Allergy/AdvReac Type Severity Reaction Status Date / Time ampicillin Allergy Unknown Verified 03/11/24 15:08 Penicillins Allergy Unknown Verified 03/11/24 15:08 Review of Systems Const: Denies: fever(s) or chills Card: Denies: chest pain Resp: Denies: dyspnea GI: Denies: abdominal pain or vomiting : Denies: difficulty voiding Neuro: Denies: headache(s) PFSH ED PFSH: Medical History Coronary artery disease Seizure disorder Family History Mother Diabetes Father Heart disease Social History Smoking and tobacco/nicotine status: never used tobacco/nicotine Alcohol intake: never Substance/Drug Use: never Adopted: No Marital status: Number of children: 2 service: No Physical Exam Const: COMMON NORMALS: no acute distress, healthy appearing and alert OTHER: Patient is sitting upright in stretcher no acute distress. She is able to give some history, but is not able to give all history. She is interactive with exam appropriately. No family at bedside at time of exam HENMT: COMMON NORMALS: normocephalic HEAD & SCALP: normocephalic Eye: COMMON NORMALS: EOMs intact bilaterally Neck/C-Spine: COMMON NORMALS: full ROM Chest: CHEST: Yes Symmetrical chest wall rise Resp: COMMON NORMALS: normal respiratory effort and clear to auscultation bilaterally AUSCULTATION: clear to auscultation bilaterally Cardio: COMMON NORMALS: regular rate and regular rhythm RATE: regular rate RHYTHM: regular rhythm Extremity: RIGHT LOWER EXTREMITY: Yes lower leg (diffuse swelling. No erythema noted) Neuro: SENSORIUM/ORIENTATION: Yes alert Psych: COMMON NORMALS: cooperative Skin: TRAUMA: no lacerations or abrasions Course Vital Signs: Vital signs: Vital Signs Temperature 98.1 F 03/19/24 23:22 Pulse Rate 88 03/20/24 04:07 Respiratory Rate 19 H 03/20/24 00:01 Blood Pressure 117/56 03/20/24 04:07 Pulse Oximetry 97 03/20/24 04:07 Oxygen Delivery Me thod Room Air 03/20/24 04:33 MDM - Fall Medical Decision Making 78yo female presents via EMS for evaluation following a fall. Per EMS, patient was on the floor for 2 hours prior to being found. Patient possibly hit her head and family reported some confusion. Family also reported swelling to the right leg that is warm to touch as well. Patient's states that she did fall, but does not know if it was related to a trip, weakness, or dizziness. Patient denies any pain at this time. Patient is unsure if she is still using blood thinners. She denies any other concerns at this time. Patient is nontoxic in appearance. Vital signs are stable. Differential diagnoses include but are not limited to: Intracranial hemorrhage, syncope, UTI, DVT, electrolyte abnormalities No leukocytosis. No indication of anemia. No electrolyte abnormalities noted. Creatinine is noted to be 1.3. INR is 1.28. Awaiting UA. CT of the head with no acute intracranial abnormalities noted. Venous ultrasound right leg pending. Family is present at bedside at time of discussion of results. They do report that patient is on Eliquis for a pulmonary embolism, but they have missed a couple of doses. They would like to proceed with the ultrasound. UA does indicate urinary tract infection, will proceed with antibiotics in the emergency department and prescription sent to patient's pharmacy. Dr. Martin to monitor ultrasound results and likely discharge. Medical Records I reviewed the patient's medical records. Lab Data I reviewed the patient's lab results. 03/19/24 23:45 03/19/24 23:[address] 03/19/24 23:32 IMPRESSION: No acute intracranial abnormality. If symptoms persist, consider further evaluation with MRI, if there are no contraindications to obtaining a MRI scan. Chest X-Ray 03/20/24 02:06 IMPRESSION: 1. Stable cardiomegaly. 2. Discoid atelectasis left lung base. Venous Duplex 03/20/24 02:07 IMPRESSION: Negative exam for deep vein thrombus. Laboratory Results WBC 7.66 10^3/uL (3.29-11.43) 03/19/24 23:45 RBC 4.44 10^6/uL (3.85-5.65) 03/19/24 23:45 Hgb 12.20 g/dL (11.27-16.99) 03/19/24 23:45 Hct 40.0 % (36-47) 03/19/24 23:45 MCV 90.1 fl (85-98) 03/19/24 23:45 MCH 27.5 pg (27-33) 03/19/24 23:45 MCHC 30.5 g/dL (30-55) 03/19/24 23:45 RDW 14.6 % (12.1-15.1) 03/19/24 23:45 Plt Count 266 10^3/cmm (157-399) 03/19/24 23:45 MPV 9.2 fL (7.4-10.4) 03/19/24 23:45 Neut % (Auto) 84.2 % 03/19/24 23:45 Lymph % (Auto) 8.9 % 03/19/24 23:45 [place] % (Auto) 6.0 % 03/19/24 23:45 Eos % (Auto) 0.1 % 03/19/24 23:45 Baso % (Auto) 0.7 % 03/19/24 23:45 Neut # (Auto) 6.45 10^3/uL (1.8-7.7) 03/19/24 23:45 Lymph # (Auto) 0.7 10^3/uL (0.8-4.8) L 03/19/24 23:45 [place] # (Auto) 0.5 10^3/uL (0.2-0.9) 03/19/24 23:45 Eos # (Auto) 0.0 10^3/uL (0.0-0.8) 03/19/24 23:45 Baso # (Auto) 0.1 10^3/uL (0.0-0.1) 03/19/24 23:45 Nucleated RBC % (auto) 0 % 03/19/24 23:45 Nucleated RBCs # 0.0 /100WBC 03/19/24 23:45 PT 16.90 SECONDS (12.1-14.9) H 03/19/24 23:45 INR 1.28 (0.8-1.2) H 03/19/24 23:45 APTT 29.2 SECONDS (23.9-36.7) 03/19/24 23:45 Sodium 139 mmol/L (136-145) 03/19/24 23:45 Potassium 4.4 mmol/L (3.5-5.1) 03/19/24 23:45 Chloride 103 mmol/L (98-107) 03/19/24 23:45 Carbon Dioxide 19 mmol/L (22-29) L 03/19/24 23:45 Anion Gap 21.4 (5-19) H 03/19/24 23:45 BUN 20 mg/dL (8-23) 03/19/24 23:45 Creatinine 1.3 mg/dL (0.5-0.9) H 03/19/24 23:45 GFR Calculation Not Reportable 03/19/24 23:45 Glucose 101 mg/dL (65-115) 03/19/24 23:45 Calculated Osmolality 291 mOsm/kg (285-295) 03/19/24 23:45 Calcium 10.1 mg/dL (8.5-10.5) 03/19/24 23:45 Total Bilirubin 0.4 mg/dL (0.15-1.2) 03/19/24 23:45 AST 79 U/L (0-32) H 03/19/24 23:45 ALT 33 U/L (0-33) 03/19/24 23:45 Alkaline Phosphatase 116 U/L (35-105) H 03/19/24 23:45 Total Protein 6.9 g/dL (6.6-8.7) 03/19/24 23:45 Albumin 3.7 g/dL (3.5-5.2) 03/19/24 23:45 Globulin 3.2 g/dL (1.3-4.6) 03/19/24 23:45 Urine Color Yellow (Yellow) 03/20/24 00:28 Urine Appearance Cloudy (CLEAR) A 03/20/24 00:28 Urine pH 6.0 (5-7) 03/20/24 00:28 Ur Specific [place] 1.014 (1.005-1.030) 03/20/24 00:28 Urine Protein 1+ (Negative) A 03/20/24 00: Urine Glucose (UA) Negative (Normal) 03/20/24 00:28 Urine Ketones 2+ (Negative) H 03/20/24 00:28 Urine Blood 3+ (Negative) A 03/20/24 00:28 Urine Nitrate Negative (Negative) 03/20/24: Urine Bilirubin Negative (Negative) 03/20/24 00: Urine Urobilinogen 0.2 mg/dL (Negative) 03/20/24 00:28 Ur Leukocyte Esterase 2+ (Negative) A 03/20/24 00: Urine RBC >100 /hpf (0-2) H 03/20/24 00:28 Urine WBC >100 /hpf (0-5) H 03/20/24 00:28 Ur Squamous Epith Cells 0-5 /hpf (0-5) 03/20/24 00:28 Amorphous Sediment Not Reportable 03/20/24 00:28 Urine Bacteria None seen /hpf (NONE) 03/20/24 00:28 Hyaline Casts 0.81 /lpf 03/20/24 00:28 Discharge Plan Discharge Patient Disposition: Placed in Observation Admit Provider: Qing Villalobos Clinical Impression: Acute UTI Condition: Stable Coding Level of Care Code ED Stars Coordinator for Chg Fwd Documented by User: Car Martin DO 03/20/24 05:21 HPI - Fall General: Chief Complaint: ER Hold Stated Complaint: Fall Time Seen by Provider: 03/19/24 23:28 Related Data Home Medications Medication Instructions Recorded Confirmed levothyroxine 25 mcg tablet 25 mcg PO DAILY 03/24/23 02/07/24 primidone 50 mg tablet 50 mg PO DAILY 03/24/23 02/07/24 topiramate 200 mg tablet (Topamax) 200 mg PO DAILY 03/24/23 02/07/24 aspirin 81 mg tablet,delayed 81 mg PO DAILY PRN Pain 09/02/23 02/07/24 release atorvastatin 40 mg tablet 40 mg PO QPM 02/07/24 02/07/24 Previous Rx's Medication Instructions Recorded nitroglycerin 0.4 mg sublingual 0.4 mg sublingual Q5M PRN Chest 03/25/23 tablet Pain #25 tabs apixaban 5 mg (74 tabs) tablets in See Rx Instructions PO .COMPLEX 03/04/24 a dose pack (Eliquis DVT-PE Treat #74 ea 30D Start) pantoprazole 40 mg tablet,delayed 40 mg PO DAILY #30 tabs 03/04/24 release cefpodoxime 200 mg tablet 200 mg PO BID #20 tabs 03/20/24 Allergies Allergy/AdvReac Type Severity Reaction Status Date / Time ampicillin Allergy Unknown Verified 03/11/24 15:08 Penicillins Allergy Unknown Verified 03/11/24 15:08 [facility] ED PFS: Medical History Coronary artery disease Seizure disorder Family History Mother Diabetes Father Heart disease Social History Smoking and tobacco/nicotine status: never used tobacco/nicotine Alcohol intake: never Substance/Drug Use: never Adopted: No Marital status: Number of children: 2 service: No Course Vital Signs: Vital signs: Vital Signs Temperature 98.1 F 03/19/24 23:22 Pulse Rate 88 03/20/24 04:07 Respiratory Rate 19 H 03/20/24 00:01 Blood Pressure 117/56 03/20/24 04:07 Pulse Oximetry 97 03/20/24 04:07 Oxygen Delivery Me thod Room Air 03/20/24 04:33 MDM - Fall Medical Decision Making 78yo female presents via EMS for evaluation following a fall. Per EMS, patient was on the floor for 2 hours prior to being found. Patient possibly hit her head and family reported some confusion. Family also reported swelling to the right leg that is warm to touch as well. Patient's states that she did fall, but does not know if it was related to a trip, weakness, or dizziness. Patient denies any pain at this time. Patient is unsure if she is still using blood thinners. She denies any other concerns at this time. Patient is nontoxic in appearance. Vital signs are stable. Differential diagnoses include but are not limited to: Intracranial hemorrhage, syncope, UTI, DVT, electrolyte abnormalities No leukocytosis. No indication of anemia. No electrolyte abnormalities noted. Creatinine is noted to be 1.3. INR is 1.28. Awaiting UA. CT of the head with no acute intracranial abnormalities noted. Venous ultrasound right leg pending. Family is present at bedside at time of discussion of results. They do report that patient is on Eliquis for a pulmonary embolism, but they have missed a couple of doses. They would like to proceed with the ultrasound. UA does indicate urinary tract infection, will proceed with antibiotics in the emergency department and prescription sent to patient's pharmacy. Dr. Martin to monitor ultrasound results. Patient checked out to me at shift change. She had complained of some left-sided chest pain after fall. X-ray is negative. She has a negative Doppler scan. Attempted to walk the patient in the emergency room. She is full assist x 2, and did not do well. Family is concerned about her going home given the extent of her weakness. She does have a urinary tract infection. Spoke with hospitalist. He is willing to observe the patient for urinary tract infection generalized weakness. Lab Data 03/19/24 23:45 03/19/24 23:[address] 03/19/24 23:32 IMPRESSION: No acute intracranial abnormality. If symptoms persist, consider further evaluation with MRI, if there are no contraindications to obtaining a MRI scan. Chest X-Ray 03/20/24 02:06 IMPRESSION: 1. Stable cardiomegaly. 2. Discoid atelectasis left lung base. Venous Duplex 03/20/24 02:07 IMPRESSION: Negative exam for deep vein thrombus. Laboratory Results WBC 7.66 10^3/uL (3.29-11.43) 03/19/24 23:45 RBC 4.44 10^6/uL (3.85-5.65) 03/19/24 23:45 Hgb 12.20 g/dL (11.27-16.99) 03/19/24 23:45 Hct 40.0 % (36-47) 03/19/24 23:45 MCV 90.1 fl (85-98) 03/19/24 23:45 MCH 27.5 pg (27-33) 03/19/24 23:45 MCHC 30.5 g/dL (30-55) 03/19/24 23:45 RDW 14.6 % (12.1-15.1) 03/19/24 23:45 Plt Count 266 10^3/cmm (157-399) 03/19/24 23:45 MPV 9.2 fL (7.4-10.4) 03/19/24 23:45 Neut % (Auto) 84.2 % 03/19/24 23:45 Lymph % (Auto) 8.9 % 03/19/24 23:45 [place] % (Auto) 6.0 % 03/19/24 23:45 Eos % (Auto) 0.1 % 03/19/24 23:45 Baso % (Auto) 0.7 % 03/19/24 23:45 Neut # (Auto) 6.45 10^3/uL (1.8-7.7) 03/19/24 23:45 Lymph # (Auto) 0.7 10^3/uL (0.8-4.8) L 03/19/24 23:45 [place] # (Auto) 0.5 10^3/uL (0.2-0.9) 03/19/24 23:45 Eos # (Auto) 0.0 10^3/uL (0.0-0.8) 03/19/24 23:45 Baso # (Auto) 0.1 10^3/uL (0.0-0.1) 03/19/24 23:45 Nucleated RBC % (auto) 0 % 03/19/24 23:45 Nucleated RBCs # 0.0 /100WBC 03/19/24 23:45 PT 16.90 SECONDS (12.1-14.9) H 03/19/24 23:45 INR 1.28 (0.8-1.2) H 03/19/24 23:45 APTT 29.2 SECONDS (23.9-36.7) 03/19/24 23:45 Sodium 139 mmol/L (136-145) 03/19/24 23:45 Potassium 4.4 mmol/L (3.5-5.1) 03/19/24 23:45 Chloride 103 mmol/L (98-107) 03/19/24 23:45 Carbon Dioxide 19 mmol/L (22-29) L 03/19/24 23:45 Anion Gap 21.4 (5-19) H 03/19/24 23:45 BUN 20 mg/dL (8-23) 03/19/24 23:45 Creatinine 1.3 mg/dL (0.5-0.9) H 03/19/24 23:45 GFR Calculation Not Reportable 03/19/24 23:45 Glucose 101 mg/dL (65-115) 03/19/24 23:45 Calculated Osmolality 291 mOsm/kg (285-295) 03/19/24 23:45 Calcium 10.1 mg/dL (8.5-10.5) 03/19/24 23:45 Total Bilirubin 0.4 mg/dL (0.15-1.2) 03/19/24 23:45 AST 79 U/L (0-32) H 03/19/24 23:45 ALT 33 U/L (0-33) 03/19/24 23:45 Alkaline Phosphatase 116 U/L (35-105) H 03/19/24 23:45 Total Protein 6.9 g/dL (6.6-8.7) 03/19/24 23:45 Albumin 3.7 g/dL (3.5-5.2) 03/19/24 23:45 Globulin 3.2 g/dL (1.3-4.6) 03/19/24 23:45 Urine Color Yellow (Yellow) 03/20/24 00:28 Urine Appearance Cloudy (CLEAR) A 03/20/24 00: Urine pH 6.0 (5-7) 03/20/24 00:28 Ur Specific [place] 1.014 (1.005-1.030) 03/20/24 00:28 Urine Protein 1+ (Negative) A 03/20/24 00:28 Urine Glucose (UA) Negative (Normal) 03/20/24 00:28 Urine Ketones 2+ (Negative) H 03/20/24 00:28 Urine Blood 3+ (Negative) A 03/20/24: Urine Nitrate Negative (Negative) 03/20/24 00: Urine Bilirubin Negative (Negative) 03/20/24 00: Urine Urobilinogen 0.2 mg/dL (Negative) 03/20/24 00:28 Ur Leukocyte Esterase 2+ (Negative) A 03/20/24: Urine RBC >100 /hpf (0-2) H 03/20/24 00:28 Urine WBC >100 /hpf (0-5) H 03/20/24 00:28 Ur Squamous Epith Cells 0-5 /hpf (0-5) 03/20/24 Amorphous Sediment Not Reportable 03/20/24: Urine Bacteria None seen /hpf (NONE) 03/20/24 00:28 Hyaline Casts 0.81 /lpf 03/20/24 00:28 All radiology interpretation(s) finalized by discharge Discharge Plan Discharge Patient Disposition: Placed in Observation Admit Provider: Qing Villalobos Clinical Impression: Acute UTI Condition: Stable Coding Level of Care Code ED Stars Coordinator for Adrián Turk
[2024-03-20 00:42] LABS: Bilirubin Urine Negative (Negative); Blood Urine 3+ (Negative); Glucose Urine UA Negative (Normal); Ketones Urine 2+ (Negative); Leukocyte Esterase Urine 2+ (Negative); Nitrate Urine Negative (Negative); Protein Urine 1+ (Negative); Specific Gravity, Urine 1.014 (1.005-1.030); Urine Appearance Cloudy (CLEAR); Urine Color Yellow (Yellow); Urobilinogen Urine 0.2 mg/dL (Negative)
[2024-03-20 00:46] LABS: Add Urine Microscopic? YES; Bacteria Urine None Seen /hpf; Hyaline Casts Urine 0.81 /lpf; RBC Urine >100 /hpf (0-2); Squamous Epithelial Cell Urine 0-5 /hpf (0-5); WBC Urine >100 /hpf (0-5)
[2024-03-20 00:56] LABS: Add Urine Culture? Yes
[2024-03-20] MEDS: cefTRIAXone 2,000 mg SDV 2000 MG IVP (02:00)
--- NOTE | 2024-03-20 02:06 | XRR_ITS ---
PROCEDURE INFORMATION: Exam: XR Chest Exam date and time: 03/20/2024 2:06 AM Age: 78 years old Clinical indication: Pain; Chest pressure; Patient HX: C/O chest discomfort post fall last night. ; Additional info: Rib pain post fall TECHNIQUE: Imaging protocol: Radiologic exam of the chest. Views: 1 view. COMPARISON: CT chest abdpel w/*[id number] 02/07/2024 12:14 AM FINDINGS: Lungs: Suspected discoid atelectasis left lung base. Pleural spaces: Unremarkable. No pleural effusion. No pneumothorax. Heart/Mediastinum: Stable cardiomegaly. Vasculature: Calcific plaque involves the aortic knob. Bones/joints: Unremarkable. XR/XR chest 1V portable [id number] IMPRESSION: 1. Stable cardiomegaly. 2. Discoid atelectasis left lung base.
--- NOTE | 2024-03-20 02:07 | USR_ITS ---
PROCEDURE INFORMATION: Exam: US Duplex Right Lower Extremity Veins, Limited Exam date and time: 03/20/2024 2:15 AM Age: 78 years old Clinical indication: Screening exam; Dvt TECHNIQUE: Imaging protocol: Real-time duplex ultrasound of the right extremity with 2-D cooper scale, color Doppler flow and spectral waveform analysis including responses to compression and other maneuvers (when performed) with image documentation. Limited exam was focused on the right lower extremity veins. COMPARISON: CT chest abdpel w/*[id number] 02/07/2024 12:14 AM FINDINGS: Right deep veins: Unremarkable. The common femoral, femoral, proximal profunda femoral and popliteal veins are patent without thrombus. Normal Doppler waveforms. Normal compressibility and/or augmentation response. Superficial veins: Greater saphenous vein at the saphenofemoral junction is patent without thrombus. Soft tissues: Right calf subcutaneous edema [place]. US/[place] [id number] IMPRESSION: Negative exam for deep vein thrombus.
--- NOTE | 2024-03-20 06:32 | P.HP_ITS ---
Providers/Chief Complaint 2 Admitting Physician: Qing Villalobos MD Primary Care Provider: Bola Cervantes MD Chief Complaint: Fall History of Present Illness Destiny Hernandez is a 78 year old female who presented to the hospital after sustaining a fall at home. Patient is on Eliquis. CT head did not show any intracranial hemorrhage. No signs of stroke. As per the family patient has been somewhat confused. Patient is stating that she is not sure how she fell. At the time of evaluation family is not at the bedside. Patient is not sure about the medication that she takes. However she is aware that she is taking medications for seizure disorder. She is not able to tell me the name. CBC BMP unremarkable, UA consistent with UTI. CT head unremarkable. Patient is very pleasant during evaluation. Currently saturating well on room air. Hemodynamically stable. Has bilateral lower extremity edema. He was not able to walk on her own hence hospitalist was requested to admit her for physical therapy. Review of Systems 2 General: Reports: ROS unobtainable due to mental status Medications/Allergies Home Medications Medication Instructions Recorded Confirmed Last Taken Type levothyroxine 25 mcg tablet 25 mcg PO DAILY 03/24/23 02/07/24 03/23/23 History primidone 50 mg tablet 50 mg PO DAILY 03/24/23 02/07/24 03/23/23 History topiramate 200 mg tablet (Topamax) 200 mg PO DAILY 03/24/23 02/07/24 03/23/23 History nitroglycerin 0.4 mg sublingual 0.4 mg sublingual Q5M PRN Chest 03/25/23 02/07/24 Unknown Rx tablet Pain #25 tabs aspirin 81 mg tablet,delayed 81 mg PO DAILY PRN Pain 09/02/23 02/07/24 Unknown History release atorvastatin 40 mg tablet 40 mg PO QPM 02/07/24 02/07/24 Unknown History apixaban 5 mg (74 tabs) tablets in See Rx Instructions PO .COMPLEX 03/04/24 Unknown Rx a dose pack (Eliquis DVT-PE Treat #74 ea 30D Start) pantoprazole 40 mg tablet,delayed 40 mg PO DAILY #30 tabs 03/04/24 Unknown Rx release cefpodoxime 200 mg tablet 200 mg PO BID #20 tabs 03/20/24 Unknown Rx Allergies Allergy/AdvReac Type Severity Reaction Status Date / Time ampicillin Allergy Unknown Verified 03/11/24 15:08 Penicillins Allergy Unknown Verified 03/11/24 15:08 PFSH Acute 2 PFSH: Medical History (Updated 03/20/24 @ 06:48 by Qing Villalobos MD) ST elevation myocardial infarction (STEMI) Coronary artery disease Seizure disorder Family History Mother Diabetes Father Heart disease Social History Smoking and tobacco/nicotine status: never used tobacco/nicotine Alcohol intake: never Substance/Drug Use: never Adopted: No Marital status: Number of children: 2 service: No Vitals/I&O/Wt Last Vital Signs Temp 98.1 F 03/19/24 23:22 Pulse 89 03/20/24 06:00 Resp 19 H 03/20/24 00:01 BP 131/68 03/20/24 06:00 Pulse Ox 92 03/20/24 06:00 O2 Del Method Room Air 03/20/24 05:48 03/19/24 03/19/24 03/20/24 14:59 22:59 06:59 Intake Total 100 / 100 Balance 100 / 100 Weight last 48 hrs Weight 83.915 kg Physical Exam 2 Narrative: Pleasant, oriented to herself Memory impairment Not endorsing abdominal pain Lower extremity 2+ edema GCS 15 Nonfocal neuroexam Signs of fluid overload present S1, S2 Currently on room air Data 03/19/24 23:45 03/19/24 23:45 A&P Assessment and plan (1) Seizure disorder: (2) Memory loss: (3) Acute UTI: (4) Chronic anticoagulation: Plan Generalized weakness with metabolic encephalopathy related to UTI Start ceftriaxone check B12 and TSH No active signs of stroke Continue Topamax for seizure disorder New onset CHF Preserved ejection fraction heart failure exacerbation Start gentle diuresis Echo done recently which showed preserved ejection fraction No active chest pain incomplete bundle branch block Not complaining of chest pain at the time of my evaluation Hypothyroid: Check TSH continue levothyroxine Seizure disorder continue Topamax History of PE Continue Eliquis CT head unremarkable Patient full code for now discussed goals of care once family is here patient is forgetful Cardiac diet Physical therapy requested Attestations 2 Medical Necessity Statement*: Anticipate discharge within 48 hours Diagnoses Seizure disorder G40.909 Memory loss R41.3 Acute UTI N39.0 Chronic anticoagulation Z79.01
[2024-03-20 07:13] LABS: Thyroid Stimulating Hormone 3.88 uIU/mL (0.27-4.20); Vitamin B12 815 pg/mL (232-1245)
--- NOTE | 2024-03-20 08:42 | P.PN_ITS ---
Subjective 2 Subjective: She is feeling generally weak. Denies any flank pain. No abdominal pain. Denies any fever. No nausea or vomiting. Lives alone. Vitals/I&O/Wt Last Vital Signs Temp 98.1 F 03/19/24 23:22 Pulse 75 03/20/24 07:00 Resp 19 H 03/20/24 00:01 BP 121/51 03/20/24 07:00 Pulse Ox 91 03/20/24 07:00 O2 Del Method Room Air 03/20/24 05:48 03/19/24 03/20/24 03/20/24 22:59 06:59 14:59 Intake Total 100 / 100 Balance 100 / 100 Weight last 48 hrs Weight 83.915 kg Physical Exam 2 Narrative: Appears generally weak. Const: COMMON NORMALS: patient oriented x3 and alert GENERAL APPEARANCE: c ooperative ORIENTATION/CONSCIOUSNESS: Yes awake HENMT: COMMON NORMALS: oropharynx normal Neck/C-Spine: COMMON NORMALS: no JVD Resp: COMMON NORMALS: normal respiratory effort and clear to auscultation bilaterally AUSCULTATION: clear to auscultation bilaterally Cardio: COMMON NORMALS: no JVD, regular rhythm, S1 normal heart sound present, S2 normal heart sound present and No murmurs present (Cardio) RHYTHM: regular rhythm HEART SOUNDS: S1 normal heart sound present and S2 normal heart sound present GI: COMMON NORMALS: Normal to inspection, nondistended, normoactive bowel sounds present, Soft to palpation and non-tender PALPATION: Yes Soft to palpation Extremity: COMMON NORMALS: no joint enlargement GENERAL: Yes edema (2+) Neuro: COMMON NORMALS: patient oriented x3 and moves all extremities S ENSORIUM/ORIENTATION: Yes alert Skin: COMMON NORMALS: no rashes or lesions noted GENERAL SKIN EXAM: no rashes or lesions noted Data 03/19/24 23:45 03/19/24 23:45 A&P Assessment and plan (1) Seizure disorder: (2) Memory loss: (3) Acute UTI: (4) Chronic anticoagulation: Plan Generalized weakness with metabolic encephalopathy related to UTI Reviewed vitals, CBC, CMP, TSH, B12, UA. Reviewed prior micro studies. Without known history of resistant infections as she confirms as well. Continue ceftriaxone. Discussed with her also prior CT scan with finding of calyceal nephrolithiasis. She does not currently have symptoms of an actively passing stone. Discussed with her should follow-up with urology after discharge. Currently without signs of sepsis or complicated infection, leukocytosis is absent, afebrile. Follow-up urine culture. Monitor vitals. Check topiramate level. Pending PT evaluation. Lives alone. New onset CHF: Preserved ejection fraction heart failure exacerbation Continue Lasix 20 mg IV every 24 hours. Monitor intake and output. Monitor for risk of electrolyte deficiency. Risk of kidney injury, hypovolemia. Reassess volume status. Reassess kidney function, chemistry. Echo done recently which showed preserved ejection fraction No active chest pain incomplete bundle branch block Not complaining of chest pain at the time of my evaluation Hypothyroid: Check TSH continue levothyroxine Seizure disorder continue Topamax. Check level. History of PE Continue Eliquis CT head unremarkable Requesting to confirm home medications. full code Cardiac diet Attestations 2 Medical Necessity Statement*: Continue hospitalization for assessment management of generalized weakness, and a lady of advanced age, living alone. and High MDM includes described risk of complication, morbidity or mortality of management as documented Diagnoses Seizure disorder G40.909 Memory loss R41.3 Acute UTI N39.0 Chronic anticoagulation Z79.01
[2024-03-20] MEDS: sennosides-docusate Tablet 1 TAB PO (09:08)
[2024-03-20] MEDS: apixaban 5 mg Tablet PO ×2 (09:08→21:03)
[2024-03-20] MEDS: FUROsemide 10 mg/mL SDV 2mL 20 MG IVP (09:08)
[2024-03-20] MEDS: cefTRIAXone 1,000 MG in sodium chloride 0.9% (plus) 50 ML 100 MG IV (09:12)
[2024-03-21 00:04] VITALS: BP 122/58; PULSE 78; RESP 16; TEMP 37; O2SAT 92
[2024-03-21 04:04] VITALS: BP 111/65; PULSE 71; RESP 16; TEMP 37.4; O2SAT 92
[2024-03-21 05:41] LABS: Basophils # 0.1 10^3/uL (0.0-0.1); Eosinophils # 0.2 10^3/uL (0.0-0.8); Eosinophils % 4.4 %; Hematocrit 32.1 % (36-47); Lymphocytes # 1.6 10^3/uL (0.8-4.8); Lymphocytes % 30.7 %; Mean Corpuscular HGB Conc 31.5 g/dL (30-55); Mean Corpuscular Hemoglobin 27.2 pg (27-33); Mean Corpuscular Volume 86.3 fl (85-98); Mean Platelet Volume 9.7 fL (7.4-10.4); Monocytes # 0.4 10^3/uL (0.2-0.9); Monocytes % 8.3 %; Neutrophils # 2.79 10^3/uL (1.8-7.7); Neutrophils % 55.2 %; Nucleated Red Blood Cells % 0 %; Platelet Count 236 10^3/cmm (157-399); Red Blood Count 3.72 10^6/uL (3.85-5.65); Red Cell Distribution Width 14.6 % (12.1-15.1); White Blood Count 5.05 10^3/uL (3.29-11.43)
[2024-03-21 06:23] LABS: Anion Gap 12.8 (5-19); Blood Urea Nitrogen 24 mg/dL (8-23); Calcium 9.1 mg/dL (8.5-10.5); Carbon Dioxide 23 mmol/L (22-29); Chloride 107 mmol/L (98-107); Creatinine Clr Calc Pharmacy 47.9419; Glucose 95 mg/dL (65-115); Magnesium 1.8 mg/dL (1.7-2.3); Osmolality Calculated 292 mOsm/kg (285-295); Potassium 3.8 mmol/L (3.5-5.1); Sodium 139 mmol/L (136-145)
[2024-03-21 07:21] VITALS: BP 119/65; PULSE 71; RESP 16; TEMP 37; O2SAT 93
[2024-03-21] MEDS: levothyroxine 25 mcg Tablet PO (07:24)
[2024-03-21] MEDS: magnesium sulfate premix 1 GM/100 ML PIGGYBACK IV (09:17)
[2024-03-21] MEDS: sennosides-docusate Tablet 1 TAB PO (09:19)
[2024-03-21] MEDS: FUROsemide 10 mg/mL SDV 2mL 20 MG IVP (09:19)
[2024-03-21] MEDS: apixaban 5 mg Tablet PO (09:19)
--- NOTE | 2024-03-21 09:19 | P.DS_ITS ---
Discharge Providers Date of Admission: 03/20/24 04:29 Date of Discharge: March 21, 2024 Attending Provider at Admission: Qing Villalobos MD Attending Provider at Discharge: Koko Brown Primary Care Provider: Bola Cervantes MD Diagnoses at Discharge Discharge Diagnosis (1) Seizure disorder: Status: Acute (2) Memory loss: Status: Acute (3) Acute UTI: Status: Acute (4) Chronic anticoagulation: Status: Acute Reason for Visit Reason for Visit: Fall Brief History: Destiny Hernandez is a 78 year old female who presented to the hospital after sustaining a fall at home. Patient is on Eliquis. CT head did not show any intracranial hemorrhage. No signs of stroke. As per the family patient has been somewhat confused. Patient is stating that she is not sure how she fell. At the time of evaluation family is not at the bedside. Patient is not sure about the medication that she takes. However she is aware that she is taking medications for seizure disorder. She is not able to tell me the name. CBC BMP unremarkable, UA consistent with UTI. CT head unremarkable. Patient is very pleasant during evaluation. Currently saturating well on room air. Hemodynamically stable. Has bilateral lower extremity edema. He was not able to walk on her own hence hospitalist was requested to admit her for physical therapy. Hospital Course Hospital Course She was started on treatment with ceftriaxone, continued on Eliquis, without worsening hematuria. On review of CT from February noted calyceal nephrolithiasis without any obstructing stones. Did not have any symptoms of passing a renal stone at current time. Remained afebrile, without leukocytosis or signs of sepsis. Generalized weakness overall with improvement. Was assessed by physical therapy. Initial concern for some decompensation of diastolic CHF, but for the remainder of hospitalization remained compensated. Renal function remained stable. Received supplementation of magnesium. TSH was normal. Topamax level has been sent out and is pending. Urine culture still pending, on review of prior without history of resistant infection she is discharging home with her daughter with whom she will be staying for the next a while while recovering, will complete further 10-day course of cefpodoxime. Please follow-up final urine culture. As per discussion with her daughter, she would benefit from further assessment by urology due to persistent microscopic hematuria and recurrent UTI. They know to seek medical attention in case of any worsening of bleeding, blood clots or other concerning symptoms in the setting of anticoagulation. Please follow-up anemia with low normal MCV (Hb 10.1, MCV 86.3). Physical Exam Narrative: Appears stronger. Const: COMMON NORMALS: patient oriented x3 and alert GENERAL APPEARANCE: cooperative ORIENTATION/CONSCIOUSNESS: Yes awake HENMT: COMMON NORMALS: oropharynx normal Neck/C-Spine: COMMON NORMALS: no JVD Resp: COMMON NORMALS: normal respiratory effort and clear to auscultation bilaterally AUSCULTATION: clear to auscultation bilaterally Cardio: COMMON NORMALS: no JVD, regular rhythm, S1 normal heart sound present, S2 normal heart sound present and No murmurs present (Cardio) RHYTHM: regular rhythm HEART SOUNDS: S1 normal heart sound present and S2 normal heart sound present GI: COMMON NORMALS: Normal to inspection, nondistended, normoactive bowel sounds present, Soft to palpation and non-tender PALPATION: Yes Soft to palpation Extremity: COMMON NORMALS: no joint enlargement GENERAL: Yes edema (Trace) Neuro: COMMON NORMALS: patient oriented x3 and moves all extremities SENSORIUM/ORIENTATION: Yes alert Skin: COMMON NORMALS: no rashes or lesions noted GENERAL SKIN EXAM: no rashes or lesions noted Discharge Data Studies Completed and Pending Completed Studies During Hospitalization Category Date Time Status CT head wo con* [id number] Stat Cat Scan 03/19/24 23:32 Completed XR chest 1V portable [id number] Stat Exams 03/20/24 02:06 [place] [id number] Stat Ultrasound 03/20/24 02:07 Completed Pending at discharge Category Date Time Status Topiramate Level Routine Lab 03/20/24 08:02 Received Urine Culture Stat Lab 03/20/24 00:28 Received Radiology Impressions Head CT 03/19/24 23:32 IMPRESSION: No acute intracranial abnormality. If symptoms persist, consider further evaluation with MRI, if there are no contraindications to obtaining a MRI scan. Chest X-Ray 03/20/24 02:06 IMPRESSION: 1. Stable cardiomegaly. 2. Discoid atelectasis left lung base. Venous Duplex 03/20/24 02:07 IMPRESSION: Negative exam for deep vein thrombus. Laboratory Results WBC 5.05 10^3/uL (3.29-11.43) 03/21/24 05:00 RBC 3.72 10^6/uL (3.85-5.65) L 03/21/24 05:00 Hgb 10.10 g/dL (11.27-16.99) L 03/21/24 05:00 Hct 32.1 % (36-47) L 03/21/24 05:00 MCV 86.3 fl (85-98) 03/21/24 05:00 MCH 27.2 pg (27-33) 03/21/24 05:00 MCHC 31.5 g/dL (30-55) 03/21/24 05:00 RDW 14.6 % (12.1-15.1) 03/21/24 05:00 Plt Count 236 10^3/cmm (157-399) 03/21/24 05:00 MPV 9.7 fL (7.4-10.4) 03/21/24 05:00 Neut % (Auto) 55.2 % 03/21/24 05:00 Lymph % (Auto) 30.7 % 03/21/24 05:00 [place] % (Auto) 8.3 % 03/21/24 05:00 Eos % (Auto) 4.4 % 03/21/24 05:00 Baso % (Auto) 1.0 % 03/21/24 05:00 Neut # (Auto) 2.79 10^3/uL (1.8-7.7) 03/21/24 05:00 Lymph # (Auto) 1.6 10^3/uL (0.8-4.8) 03/21/24 05:00 [place] # (Auto) 0.4 10^3/uL (0.2-0.9) 03/21/24 05:00 Eos # (Auto) 0.2 10^3/uL (0.0-0.8) 03/21/24 05:00 Baso # (Auto) 0.1 10^3/uL (0.0-0.1) 03/21/24 05:00 Nucleated RBC % (auto) 0 % 03/21/24 05:00 Nucleated RBCs # 0.0 /100WBC 03/21/24 05:00 PT 16.90 SECONDS (12.1-14.9) H 03/19/24 23:45 INR 1.28 (0.8-1.2) H 03/19/24 23:45 APTT 29.2 SECONDS (23.9-36.7) 03/19/24 23:45 Sodium 139 mmol/L (136-145) 03/21/24 05:00 Potassium 3.8 mmol/L (3.5-5.1) 03/21/24 05:00 Chloride 107 mmol/L (98-107) 03/21/24 05:00 Carbon Dioxide 23 mmol/L (22-29) 03/21/24 05:00 Anion Gap 12.8 (5-19) 03/21/24 05:00 BUN 24 mg/dL (8-23) H 03/21/24 05:00 Creatinine 1.1 mg/dL (0.5-0.9) H 03/21/24 05:00 GFR Calculation Not Reportable 03/21/24 05:00 Glucose 95 mg/dL (65-115) 03/21/24 05:00 Calculated Osmolality 292 mOsm/kg (285-295) 03/21/24 05:00 Calcium 9.1 mg/dL (8.5-10.5) 03/21/24 05:00 Magnesium 1.8 mg/dL (1.7-2.3) 03/21/24 05:00 Total Bilirubin 0.4 mg/dL (0.15-1.2) 03/19/24 23:45 AST 79 U/L (0-32) H 03/19/24 23:45 ALT 33 U/L (0-33) 03/19/24 23:45 Alkaline Phosphatase 116 U/L (35-105) H 03/19/24 23:45 Total Protein 6.9 g/dL (6.6-8.7) 03/19/24 23:45 Albumin 3.7 g/dL (3.5-5.2) 03/19/24 23:45 Globulin 3.2 g/dL (1.3-4.6) 03/19/24 23:45 Vitamin B12 815 pg/mL (232-1245) 03/19/24 23:45 TSH 3.88 uIU/mL (0.27-4.20) 03/19/24 23:45 Urine Color Yellow (Yellow) 03/20/24 00:28 Urine Appearance Cloudy (CLEAR) A 03/20/24 00:28 Urine pH 6.0 (5-7) 03/20/24 00:28 Ur Specific [place] 1.014 (1.005-1.030) 03/20/24 00:28 Urine Protein 1+ (Negative) A 03/20/24 00:28 Urine Glucose (UA) Negative (Normal) 03/20/24 00:28 Urine Ketones 2+ (Negative) H 03/20/24 00:28 Urine Blood 3+ (Negative) A 03/20/24 00:28 Urine Nitrate Negative (Negative) 03/20/24 00:28 Urine Bilirubin Negative (Negative) 03/20/24 00:28 Urine Urobilinogen 0.2 mg/dL (Negative) 03/20/24 00:28 Ur Leukocyte Esterase 2+ (Negative) A 03/20/24 00:28 Urine RBC >100 /hpf (0-2) H 03/20/24 00:28 Urine WBC >100 /hpf (0-5) H 03/20/24 00:28 Ur Squamous Epith Cells 0-5 /hpf (0-5) 03/20/24 00: Amorphous Sediment Not Reportable 03/20/24 00:28 Urine Bacteria None seen /hpf (NONE) 03/20/24 00:28 Hyaline Casts 0.81 /lpf 03/20/24 00:28 Vitals Last Vital Signs Temp 98.6 F 03/21/24 07:21 Pulse 71 03/21/24 07:21 Resp 16 03/21/24 07:21 BP 119/65 03/21/24 07:21 Pulse Ox 93 03/21/24 07:21 O2 Del Method Room Air 03/21/24 07:21 Discharge Plan Discharge Patient Disposition: Home Condition: Stable Prescriptions: New cefpodoxime 200 mg tablet 200 mg PO BID Qty: 20 0RF Rx Instructions: must administer with a meal/food magnesium L-threonate 48 mg magnesium (667 mg) capsule 48 mg PO DAILY Qty: 90 0RF Continued aspirin 81 mg tablet,delayed release (DR/EC) 81 mg PO DAILY PRN (Reason: Pain) Eliquis DVT-PE Treat 30D Start 5 mg (74 tabs) tablets,dose pack See Rx Instructions .ROUTE .COMPLEX Qty: 74 0RF Rx Instructions: orally per package directions pantoprazole 40 mg tablet,delayed release (DR/EC) 40 mg PO DAILY Qty: 30 0RF levothyroxine 25 mcg tablet 25 mcg PO DAILY primidone 50 mg tablet 50 mg PO DAILY topiramate [Topamax] 200 mg tablet 200 mg PO DAILY nitroglycerin 0.4 mg Tablet, Sublingual 0.4 mg sublingual Q5M PRN (Reason: Chest Pain) Qty: 25 2RF atorvastatin 40 mg tablet 40 mg PO QPM Changed furosemide 20 mg tablet 20 mg PO DAILY PRN (Reason: Edema) Qty: 1 0RF Rx Instructions: Dose change only Discontinued clopidogrel 75 mg tablet 75 mg PO DAILY Discharge Orders: Discharge Order (Routine); Ordered 03/21/24 Ordered By: Koko Brown Referrals: Bola Cervantes MD [Primary Care Provider] - 03/23/24 10:20 am ( ) Javan Chappell MD [Referring] - (We have notified your physician's clinic of the need for a follow-up appointment to be scheduled. If you have not heard from them within the next 2 business days, please call them directly. ) Discharge Diet: Cardiac Discharge Activity: Use walker/crutches as instructed and As per PT/OT instructions Patient Instructions: Cefpodoxime Proxetil (By mouth), Urinary Tract Infection in Older Adults (ED), Chest Contusion (ED), Opioid Safety, Pain Management Activity Restrictions/Additional Instructions: Please follow up with urology to reassess persistent small amounts of blood in urine and the recurrent urinary tract infections, with investigation for any other sources of bleeding apart from the small kidney stones. Monitor for any worsening of bleeding with any visible dark red bloody urine or any blood clots in urine in which case seek medical attention without delay. Please follow-up mild anemia with low normal MCV with your primary provider. Avoid soft drinks/soda to help reduce chance of formation of kidney stones. Reduce sodium in diet. Do not forget to drink at least a few cups of water in a day. Avoid dehydration, but also try not to over hydrate on purpose (No more than 1.5 L of fluid in a day). Add magnesium to her diet due to slightly low level. Return for worsening weakness, fever, worsening pain, or any other concerning symptoms. Discharge Attestations Time Spent in Discharge Care*: greater than 30 min Quality Metrics Clinical Quality Measures [ No reported AMI, CVA or VTE this stay] Coding Level of Care Code 59961 Total time (in minutes) for Discharge: 45 Diagnoses Seizure disorder G40.909 Memory loss R41.3 Acute UTI N39.0 Chronic anticoagulation Z79.01
--- NOTE | 2024-03-21 09:49 | PC.CHAP ---
Pastoral Care Encounter/Spiritual Assessment Type of Contact [] Declined principal solutions architect visit [] Patient/Family/Request visit [] Outpatient visit [] Follow-up visit [] Physician referral [] Code/Alert [] Routine visit [] Staff referral [] Actively dying [] Patient sleeping [] Family support [] [] Out of room [] Palliative care [] [x] Receiving care in room [] Pre-surgical visit [] Trauma [] Long length of stay [] ICU visit [] Other: Relational/Emotional Strength [] Patient feels connected with others/family/visitors/staff [] Distress [] Loneliness/isolation [] Abandonment Spirituality of Patient [] Person of Anisa [] Attends Religious of their Anisa [] Believes in Prayer [] Reads Bible or Jainism materials [] There are Spiritual issues to be addressed Fur Finisher Seamstress Interventions [] Prayer [] Active listening [] Non-anxious presence [] Spiritual/emotional support [] Crisis/trauma care [] Spiritual counseling [] Bereavement support [] Provided bereavement packet [] Provided Bible/devotional materials [] Provided toy/stuffed animal, coloring book to patient or family member [] Provided Communion [] Anointing/[place] [] Salvation [] Completed spiritual assessment [] Other: Impact on Illness or Injury [] Angry [] Fearful [] Anxious [] Often cries [] Exhaustion [] Unable to work [] Unable to attend hoahaoism [] Unable to walk/stand [] Unable to read [] Unable to drive [] Unable to eat/drink [] Unable to sleep [] Unable to be with family [] Patient intubated [] Other: Summary Time spent with patient
[2024-03-21 11:16] VITALS: BP 121/67; PULSE 71; RESP 15; TEMP 36.6; O2SAT 98
== END 2024-03-21 12:25 | disposition home health service (06) ==
LOC: ER 03-20 03:29 → ER IP 03-20 04:36 → MEDSURG 03-20 22:15
PROVIDERS: Nurse Practitioner; Admitting Provider Internal Medicine; Emergency Provider Emergency Medicine; PCP Internal Medicine; Visit Provider Internal Medicine
DX: G40.909 Epilepsy, unspecified, not intractable, without status epilepticus (principal); R41.3 Other amnesia; N39.0 Urinary tract infection, site not specified; Z79.01 Long term (current) use of anticoagulants; I50.9 Heart failure, unspecified; E03.9 Hypothyroidism, unspecified; Z86.711 Personal history of pulmonary embolism; Z79.82 Long term (current) use of aspirin; I25.10 Atherosclerotic heart disease of native coronary artery without angina pectoris; Z91.81 History of falling
CPT/HCPCS: 36415; 70450; 71045; 80048; 80053; 80201; 81001; 82607; 83735; 84443; 85025; 85610; 85730; 87077; 87086; 87186; 93005; 93971; 96365; 96375; 96376; 97116; 97161; 97530; 99285; G0378; J0696; J1940; J3475